=== PATIENT | male | born 1985 | race African-American/Black ===

== ENCOUNTER 2016-10-21 19:41 | Emergency (ER) | payer SELFPAY ==
[~2016-10-21 19:41] MED LIST: DILA100C PO; LACO50 PO; PHEN100 PO
[2016-10-21 19:44] VITALS: BP 153/80; PULSE 89; RESP 18; TEMP 97.8; O2SAT 96
--- NOTE | 2016-10-21 20:16 | PD ---
HPI Chief Complaint: Seizure Time Seen by Provider: 20:00 Travel History International Travel<30 days: No Contact w/Intl Traveler<30days: No Traveled to known affect area: No History of Present Illness HPI 31-year-old male was brought in by EMS for seizure. Patient has history of seizure. Patient was at a friend's house and started having seizure. EMS was called. Patient was postictal on the way to the ED. Upon arrival patient woke up and walked to the room by himself. Patient denies any injury during the seizure episode. Patient denies any headache. Patient denies any neck pain. Patient denies any chest pain or short of breath. Patient denies abdominal pain. Patient denies any focal weakness or numbness of extremity. Patient denies any alcohol or drug abuse. Patient states that he has been taking Dilantin and Vimpat as directed. Last medication was this morning. PFSH Past Medical History Hx Anticoagulant Therapy: No Arthritis: No Asthma: No Autoimmune Disease: No Blood Disorders: No Anxiety: No Depression: No Heart Rhythm Problems: No Cancer: No Cardiovascular Problems: No High Cholesterol: No Chemotherapy: No Chest Pain: No Congestive Heart Failure: No COPD: No Cerebrovascular Accident: No Diabetes: No Diminished Hearing: No Endocrine: No GERD: No Genitourinary: No Headaches: Yes Hiatal Hernia: No Immune Disorder: No Kidney Stones: No Musculoskeletal: No Neurologic: Yes Psychiatric: No Reproductive: No Respiratory: No Immunizations Current: No Migraines: No Radiation Therapy: No Renal Failure: No Seizures: Yes Sickle Cell Disease: No Sleep Apnea: No Thyroid Disease: No Ulcer: No PNEUMOCCOCAL Vaccine (Year): 3 Past Surgical History Abdominal Surgery: No AICD: No Arteriovenous Shunt: No Cardiac Surgery: No Ear Surgery: No Endocrine Surgery: No Eye Surgery: No Genitourinary Surgery: No Gynecologic Surgery: No Hysterectomy: No Insulin Pump: No Joint Replacement: No Neurologic Surgery: Yes (BENIGN BRAIN TUMOR REMOVAL ) Oral Surgery: No Pacemaker: No Thoracic Surgery: No Other Surgery: Yes (R HAND) Social History Alcohol Use: Yes (OCC) Tobacco Use: No Substance Use: Yes (MARIJUANA) Allergies-Medications (Allergen,Severity, Reaction): Coded Allergies: No Known Allergies (Verified , 10/21/16) Reported Meds & Prescriptions Reported Meds & Active Scripts Active Dilantin (Phenytoin Extended) 100 Mg Cap 100 Mg PO TID Review of Systems General / Constitutional: No: Fever Eyes: No: Visual changes HENT: No: Headaches Cardiovascular: No: Chest Pain or Discomfort Respiratory: No: Shortness of Breath Gastrointestinal: No: Abdominal Pain Genitourinary: No: Dysuria Musculoskeletal: No: Pain Skin: No Rash Neurologic: No: Weakness Psychiatric: No: Depression Endocrine: No: Polydipsia Hematologic/Lymphatic: No: Easy Bruising Physical Exam Narrative GENERAL: Well-nourished, well-developed patient. SKIN: Warm and dry. HEAD: Normocephalic. EYES: No scleral icterus. No injection or drainage. NECK: Supple, trachea midline. No JVD or lymphadenopathy. CARDIOVASCULAR: Regular rate and rhythm without murmurs, gallops, or rubs. RESPIRATORY: Breath sounds equal bilaterally. No accessory muscle use. GASTROINTESTINAL: Abdomen soft, non-tender, nondistended. MUSCULOSKELETAL: No cyanosis, or edema. BACK: Nontender without obvious deformity. No CVA tenderness. Neurologic exam normal. Data Data Last Documented VS Vital Signs Date Time Temp Pulse Resp B/P Pulse Ox O2 Delivery O2 Flow Rate FiO2 10/21/16 20:27 18 97 10/21/16 19:46 89 10/21/16 19:44 97.8 153/80 Orders Complete Blood Count With Diff (10/21/16 20:13) Comprehensive Metabolic Panel (10/21/16 20:13) Phenytoin (Dilantin) (10/21/16 20:13) Iv Access Insert/Monitor (10/21/16 20:13) Ecg Monitoring (10/21/16 20:13) Oximetry (10/21/16 20:13) Lorazepam (Ativan) (10/21/16 21:45) Phenytoin (Dilantin) (10/21/16 21:45) Labs Laboratory Tests Test 10/21/16 20:25 White Blood Count 10.8 TH/MM3 Red Blood Count 4.69 MIL/MM3 Hemoglobin 15.0 GM/DL Hematocrit 45.7 % Mean Corpuscular Volume 97.4 FL Mean Corpuscular Hemoglobin 32.1 PG Mean Corpuscular Hemoglobin 32.9 % Concent Red Cell Distribution Width 14.8 % Platelet Count 235 TH/MM3 Mean Platelet Volume 9.2 FL Neutrophils (%) (Auto) 39.5 % Lymphocytes (%) (Auto) 52.8 % Monocytes (%) (Auto) 6.6 % Eosinophils (%) (Auto) 0.9 % Basophils (%) (Auto) 0.2 % Neutrophils # (Auto) 4.3 TH/MM3 Lymphocytes # (Auto) 5.7 TH/MM3 Monocytes # (Auto) 0.7 TH/MM3 Eosinophils # (Auto) 0.1 TH/MM3 Basophils # (Auto) 0.0 TH/MM3 CBC Comment AUTO DIFF Differential Total Cells 100 Counted Neutrophils % (Manual) 38 % Lymphocytes % 53 % Monocytes % 6 % Eosinophils % 3 % Neutrophils # (Manual) 4.1 TH/MM3 Differential Comment FINAL DIFF MANUAL Platelet Estimate NORMAL Platelet Morphology Comment NORMAL Red Cell Morphology Comment NORMAL Sodium Level 141 MEQ/L Potassium Level 4.0 MEQ/L Chloride Level 103 MEQ/L Carbon Dioxide Level 14.3 MEQ/L Anion Gap 24 MEQ/L Blood Urea Nitrogen 14 MG/DL Creatinine 1.81 MG/DL Estimat Glomerular Filtration 53 ML/MIN Rate Random Glucose 78 MG/DL Calcium Level 8.8 MG/DL Total Bilirubin LESS THAN 0.1 MG/DL Aspartate Amino Transf 25 U/L (AST/SGOT) Alanine Aminotransferase 35 U/L (ALT/SGPT) Alkaline Phosphatase 98 U/L Total Protein 7.9 GM/DL Albumin 4.1 GM/DL Phenytoin (Dilantin) Level 3.5 MCG/ML MDM Medical Decision Making Medical Screen Exam Complete: Yes Emergency Medical Condition: Yes Interpretation(s) 21:35 PM. CBC within normal limit. 52 lymphocytes. Bicarbonate 14.3. Anion gap 24. Creatinine 1.81. Phenytoin 3.5 Differential Diagnosis Differential diagnosis including breakthrough seizure, electrolyte abnormality. Narrative Course 31-year-old male was brought in by EMS for seizure. History of seizure. Patient on Dilantin and Vimpat. Dilantin level is low today. Dilantin 200 mg by mouth given. Ativan 1 mg by mouth given. Diagnosis Primary Impression: Breakthrough seizure Patient Instructions: General Instructions Additional Instructions: Advised patient to follow with his neurologist for instruction to take medications. Follow-up with personal physician for Dilantin level checked. Return as needed. Patient may need to increase Dilantin to 300 mg daily. Med/Other Pt SpecificInfo: No Change to Meds Disposition: 01 DISCHARGE HOME Condition: Stable Allen,Hung MD Oct 21, 2016 20:16
[2016-10-21 20:27] VITALS: RESP 18; O2SAT 97
[2016-10-21 20:33] LABS: AUTOMATED NEUTROPHIL # 4.3 TH/MM3 (1.8-7.7); BASOPHIL % 0.2 % (0.0-2.0); EOSINOPHIL # 0.1 TH/MM3 (0-0.4); EOSINOPHIL % 0.9 % (0.0-4.0); HEMATOCRIT 45.7 % (39.0-51.0); LYMPH % 52.8 % (9.0-44.0); LYMPHOCYTE # 5.7 TH/MM3 (1.0-4.8); MEAN CELL VOLUME 97.4 FL (80.0-100.0); MEAN CORPUSCULAR HEMOGLOBIN 32.1 PG (27.0-34.0); MEAN CORPUSCULAR HGB CONC 32.9 % (32.0-36.0); MONO % 6.6 % (0.0-8.0); NEUT % 39.5 % (16.0-70.0); PLATELET COUNT 235 TH/MM3 (150-450); RED BLOOD COUNT 4.69 MIL/MM3 (4.50-5.90); RED CELL DISTRIBUTION WIDTH 14.8 % (11.6-17.2); WHITE BLOOD COUNT 10.8 TH/MM3 (4.0-11.0)
[2016-10-21 20:40] LABS: HEMO FLAGS AUTO DIFF
[2016-10-21 21:01] LABS: ANION GAP 24 MEQ/L (5-15); AST (GOT) 25 U/L (15-37); BICARBONATE 14.3 MEQ/L (21.0-32.0); BLOOD UREA NITROGEN 14 MG/DL (7-18); CHLORIDE 103 MEQ/L (98-107); GLOMERULAR FILTRATION RATE 53 ML/MIN (>89); SODIUM (NA) 141 MEQ/L (136-145)
[2016-10-21 21:04] LABS: EOSINOPHILS 3 % (0-4); NEUTROPHIL # MANUAL DIFF 4.1 TH/MM3 (1.8-7.7); PLATELET ESTIMATE SMEAR NORMAL (NORMAL); PLATELET MORPHOLOGY NORMAL (NORMAL); POLYS (SEG NEUTROPHILS) 38 % (16-70); SCAN/DIFF FINAL DIFF MANUAL; WBC DIFF SAMPLE 100
[2016-10-21 21:06] LABS: ALKALINE PHOSPHATASE 98 U/L (45-117); ALT (GPT) 35 U/L (12-78); TOTAL BILIRUBIN ADULT LESS THAN 0.1 MG/DL (0.2-1.0)
[2016-10-21] MEDS ORDERED: PHENYTOIN SODIUM 100 MG CAP PO ONE (21:45)
[2016-10-21] MEDS ORDERED: LORazepam 1 MG TAB PO ONE (21:45)
== END 2016-10-21 22:00 | disposition home or self-care (01) ==
LOC: NEPC 19:41
DX: R56.9 Unspecified convulsions (principal); F12.90 Cannabis use, unspecified, uncomplicated
CPT/HCPCS: 80053; 80185; 85007; 85027; 99284

== ENCOUNTER 2016-11-29 13:50 | Emergency (ER) | payer SELFPAY ==
[~2016-11-29] VITALS: Ht 182.9 cm; Wt 88.6 kg
[~2016-11-29 13:50] MED LIST changes: -LACO50 PO; -PHEN100 PO
[2016-11-29 13:56] VITALS: BP 125/73; PULSE 77; RESP 16; TEMP 98.6; O2SAT 100
[2016-11-29] MEDS ORDERED: LORazepam 2 MG/ML VIAL IV PUSH PRN (14:30)
--- NOTE | 2016-11-29 14:31 | PD ---
HPI . Seizure Chief Complaint: Seizure Time Seen by Provider: 14:27 Travel History International Travel<30 days: No Contact w/Intl Traveler<30days: No Traveled to known affect area: No History of Present Illness HPI Patient presents to us via [facility] status post an apparent seizure. The patient remembers nothing of this. He states that he has seizures about once a month. He reports that he is with his Dilantin. He denies any injury associated with the seizure today. PFSH Past Medical History Hx Anticoagulant Therapy: No Arthritis: No Asthma: No Autoimmune Disease: No Blood Disorders: No Anxiety: No Depression: No Heart Rhythm Problems: No Cancer: No Cardiovascular Problems: No High Cholesterol: No Chemotherapy: No Chest Pain: No Congestive Heart Failure: No COPD: No Cerebrovascular Accident: No Diabetes: No Diminished Hearing: No Endocrine: No GERD: No Genitourinary: No Headaches: Yes Hiatal Hernia: No Immune Disorder: No Kidney Stones: No Musculoskeletal: No Neurologic: Yes Psychiatric: No Reproductive: No Respiratory: No Immunizations Current: No Migraines: No Radiation Therapy: No Renal Failure: No Seizures: Yes Sickle Cell Disease: No Sleep Apnea: No Thyroid Disease: No Ulcer: No PNEUMOCCOCAL Vaccine (Year): 3 Past Surgical History Abdominal Surgery: No AICD: No Arteriovenous Shunt: No Cardiac Surgery: No Ear Surgery: No Endocrine Surgery: No Eye Surgery: No Genitourinary Surgery: No Gynecologic Surgery: No Hysterectomy: No Insulin Pump: No Joint Replacement: No Neurologic Surgery: Yes (BENIGN BRAIN TUMOR REMOVAL ) Oral Surgery: No Pacemaker: No Thoracic Surgery: No Other Surgery: Yes (R HAND) Social History Alcohol Use: Yes (OCC) Tobacco Use: No Substance Use: Yes (MARIJUANA) Allergies-Medications (Allergen,Severity, Reaction): Coded Allergies: No Known Allergies (Verified , 10/21/16) Reported Meds & Prescriptions Reported Meds & Active Scripts Active Dilantin (Phenytoin Extended) 100 Mg Cap 100 Mg PO TID Review of Systems Except as stated in HPI: all other systems reviewed are Neg HENT: No: Headaches Musculoskeletal: No: Myalgias, Arthralgias Neurologic: Positive: Seizures, No: Headache, Incontinence Physical Exam Narrative GENERAL: Healthy-appearing young man who is currently awake and alert and in no acute distress. SKIN: Warm and dry. He has a superficial abrasion on the left side of the forehead and then another superficial injury in the left side of the scalp. HEAD: Atraumatic. Normocephalic. No scalp contusion. EYES: Pupils equal and round. Extraocular movements are intact. ENT: No nasal bleeding or discharge. Mucous membranes pink and moist. NECK: Trachea midline. Neck is supple. CARDIOVASCULAR: Regular rate and rhythm. Heart sounds are normal. RESPIRATORY: No accessory muscle use. Lungs are clear with full air movement throughout. GASTROINTESTINAL: Abdomen soft, non-tender, nondistended. MUSCULOSKELETAL: No obvious deformities. No edema. NEUROLOGICAL: Awake and alert. No obvious cranial nerve deficits. Motor grossly within normal limits. Normal speech. PSYCHIATRIC: Appropriate mood and affect; insight and judgment normal. Data Data Last Documented VS Vital Signs Date Time Temp Pulse Resp B/P Pulse Ox O2 Delivery O2 Flow Rate FiO2 11/29/16 13:59 73 100 Room Air 11/29/16 13:56 98.6 16 125/73 Orders Phenytoin (Dilantin) (11/29/16 14:27) Lorazepam Inj (Ativan Inj) (11/29/16 14:30) Labs Laboratory Tests Test 11/29/16 14:00 Phenytoin (Dilantin) Level 5.6 MCG/ML MDM Medical Decision Making Medical Screen Exam Complete: Yes Emergency Medical Condition: Yes Differential Diagnosis Differential diagnosis of seizure includes but is not limited to epilepsy, electrolyte abnormality, previous stroke, closed head injury Narrative Course Patient presents with a known seizure disorder. He is status post a seizure. He is now awake and alert. We will give him Ativan as needed for seizure activity. I have checked a Dilantin level. Dilantin level is subtherapeutic. He will be given a dose of fosphenytoin. Diagnosis Primary Impression: Breakthrough seizure Additional Impression: Subtherapeutic serum dilantin level Patient Instructions: General Instructions, Recurrent Seizures in Adults (DC) Additional Instructions: Take your Dilantin as directed. See your doctor for a follow-up Dilantin level in about a week. Disposition: 01 DISCHARGE HOME Condition: Stable Libia Morejon MD Nov 29, 2016 14:31
[2016-11-29] MEDS ORDERED: SODIUM CHLORIDE 0.9% IV ONE (15:45)
[2016-11-29] MEDS ORDERED: PHENYTOIN IV ONE (15:45)
[2016-11-29] MEDS ORDERED: FOSPHENYTOIN SODIUM 500 MG PE/10 ML VIAL IV ONE (15:45)
[2016-11-29 17:40] VITALS: BP 141/63
== END 2016-11-29 17:44 | disposition home or self-care (01) ==
LOC: NEPA 13:50
DX: R56.9 Unspecified convulsions (principal); T50.996A Underdosing of other drugs, medicaments and biological substances, initial encounter; Z91.138 Patient's unintentional underdosing of medication regimen for other reason
CPT/HCPCS: 80185; 96374; 99284; Q2009

== ENCOUNTER 2016-12-31 10:50 | Emergency (ER) | payer SELFPAY ==
[~2016-12-31] VITALS: Ht 180.3 cm; Wt 80.0 kg
[2016-12-31 10:52] VITALS: BP 148/68; PULSE 100; RESP 22; TEMP 98.4; O2SAT 100
[2016-12-31] MEDS ORDERED: PROPARACAINE HCL 0.5% OPHT SOLN 15 ML BTL EACH EYE ONE (11:00)
[2016-12-31] MEDS ORDERED: OCUF0.3D LEFT EYE (11:13)
[2016-12-31] MEDS ORDERED: LUBR0.5D2 LEFT EYE ×3 (11:13→11:19)
--- NOTE | 2016-12-31 11:14 | PD ---
HPI Chief Complaint: Foreign Body Time Seen by Provider: 10:57 Travel History International Travel<30 days: No Contact w/Intl Traveler<30days: No Traveled to known affect area: No History of Present Illness HPI 31-year-old male here with complaint of foreign body to the left eye. Patient accidentally used superglue into the left eye just prior to arrival and said of eyedrops. Patient notes foreign body sensation and changed visual acuity of the left eye. No history of eye disease, visual dysfunction. Patient really notes little pain. PFSH Past Medical History Hx Anticoagulant Therapy: No Arthritis: No Asthma: No Autoimmune Disease: No Blood Disorders: No Anxiety: No Depression: No Heart Rhythm Problems: No Cancer: No Cardiovascular Problems: No High Cholesterol: No Chemotherapy: No Chest Pain: No Congestive Heart Failure: No COPD: No Cerebrovascular Accident: No Diabetes: No Diminished Hearing: No Endocrine: No GERD: No Genitourinary: No Headaches: Yes Hiatal Hernia: No Immune Disorder: No Kidney Stones: No Musculoskeletal: No Neurologic: Yes Psychiatric: No Reproductive: No Respiratory: No Immunizations Current: No Migraines: No Radiation Therapy: No Renal Failure: No Seizures: Yes Sickle Cell Disease: No Sleep Apnea: No Thyroid Disease: No Ulcer: No PNEUMOCCOCAL Vaccine (Year): 3 Past Surgical History Abdominal Surgery: No AICD: No Arteriovenous Shunt: No Cardiac Surgery: No Ear Surgery: No Endocrine Surgery: No Eye Surgery: No Genitourinary Surgery: No Gynecologic Surgery: No Hysterectomy: No Insulin Pump: No Joint Replacement: No Neurologic Surgery: Yes (BENIGN BRAIN TUMOR REMOVAL ) Oral Surgery: No Pacemaker: No Thoracic Surgery: No Other Surgery: Yes (R HAND) Social History Alcohol Use: Yes (OCC) Tobacco Use: No Substance Use: Yes (MARIJUANA) Allergies-Medications (Allergen,Severity, Reaction): Coded Allergies: No Known Allergies (Verified , 12/31/16) Reported Meds & Prescriptions Reported Meds & Active Scripts Active Lubricant Opth Drops (Carboxymethylcellulose Sodium Opth Drops) 0.5% Drops 2 Drop LEFT EYE QID Ocuflox Opth Drops (Ofloxacin Opth Drops) 0.3 % Drops 1 Drop LEFT EYE Q4HR Dilantin (Phenytoin Extended) 100 Mg Cap 100 Mg PO TID Review of Systems Except as stated in HPI: all other systems reviewed are Neg Physical Exam Narrative GENERAL: Well-appearing male in no acute distress SKIN: Focused skin assessment warm/dry. HEAD: Normocephalic. EYES: Pupils equal and round. Left eye with conjunctival injection. Evidence of glue along the eyelashes, left lateral aspect of the eye. After proparacaine , visual acuity 20/20 bilaterally. With slit lamp examination and floor seen staining patient has glue within the inferior lid that was removed with Q-tip on exam. There is a area along the cornea uptake of the glue at around 4:00 ENT: Mucous membranes pink and moist. CARDIOVASCULAR: Regular rate and rhythm. RESPIRATORY: No accessory muscle use. MUSCULOSKELETAL: Normal gait NEUROLOGICAL: Awake and alert. Normal speech. PSYCHIATRIC: Appropriate mood and affect; insight and judgment normal. Data Data Last Documented VS Vital Signs Date Time Temp Pulse Resp B/P Pulse Ox O2 Delivery O2 Flow Rate FiO2 12/31/16 11:00 16 12/31/16 10:52 98.4 100 148/68 100 Room Air Orders Proparacaine 0.5% Opth Soln (Alcaine 0.5 (12/31/16 11:00) MDM Medical Decision Making Medical Screen Exam Complete: Yes Emergency Medical Condition: Yes Medical Record Reviewed: Yes Differential Diagnosis 31-year-old male here with foreign body to left eye. On exam patient has evidence of glue along the eyelashes and within the eyelid which was removed easily. There is however persistent glue along the cornea. Removing this would likely cause more damage, large corneal abrasion. Patient will be treated with antibiotic drops to prevent any infection, lubricating drops and will refer to ophthalmology with mandatory referral for outpatient follow-up Narrative Course See above Diagnosis Primary Impression: Foreign body, intraocular, left eye Qualified Code: S05.52XA - Foreign body, intraocular, left eye, initial encounter Referrals: Karina Galdamez MDmetal furniture panel coverer call for appointment Patient Instructions: Eye Foreign Body (ED), General Instructions Additional Instructions: Eyedrops as prescribed. Follow-up with lunchroom operator as discussed. Med/Other Pt SpecificInfo: Prescription(s) given Scripts Carboxymethylcellulose Sodium Opth Drops (Lubricant Opth Drops)0.5% Drops2 Drop LEFT EYE QID #1 BOTTLE Ref 0 Prov:Hazel Levi MD 12/31/16 Ofloxacin Opth Drops (Ocuflox Opth Drops)0.3 % Drops1 Drop LEFT EYE Q4HR #1 BOTTLE Ref 0 Prov:Hazel Levi MD 12/31/16 Disposition: 01 DISCHARGE HOME Condition: Stable Hazel Levi MD Dec 31, 2016 11:13
== END 2016-12-31 11:39 | disposition home or self-care (01) ==
LOC: NEPD 10:50
DX: T15.02XA Foreign body in cornea, left eye, initial encounter (principal); X58.XXXA Exposure to other specified factors, initial encounter; Y93.E8 Activity, other personal hygiene; Y92.009 Unspecified place in unspecified non-institutional (private) residence as the place of occurrence of the external cause; Y99.8 Other external cause status
CPT/HCPCS: 65205

== ENCOUNTER 2017-01-18 15:06 | Emergency (ER) | payer SELFPAY ==
[~2017-01-18] VITALS: Ht 182.9 cm; Wt 87.0 kg
[~2017-01-18 15:06] MED LIST changes: +LUBR0.5D2 LEFT EYE; +OCUF0.3D LEFT EYE
[2017-01-18 15:27] VITALS: BP 106/58; PULSE 77; RESP 16; TEMP 97.8; O2SAT 99
[2017-01-18] MEDS ORDERED: LORazepam 2 MG/ML VIAL IV PUSH ONE (16:45)
[2017-01-18 17:27] LABS: BICARBONATE 27.5 MEQ/L (21.0-32.0); POTASSIUM 4.1 MEQ/L (3.5-5.1)
[2017-01-18 17:30] VITALS: BP 110/77; PULSE 72; RESP 16; TEMP 97.8; O2SAT 99
--- NOTE | 2017-01-18 17:44 | PD ---
HPI Chief Complaint: Seizure Time Seen by Provider: 16:01 Travel History International Travel<30 days: No Contact w/Intl Traveler<30days: No Traveled to known affect area: No History of Present Illness HPI 31-year-old man presents emergency department after witnessed seizure. He reports the seizure lasted about 1 minute or so. 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 He states on average she gets seizures about once a month or so. His last seizure was about 3 weeks ago. He takes Dilantin for seizures. He states he's been taking it regularly. No problems. He otherwise has been feeling generally well and healthy. No recent illnesses or injuries. He states he felt a little bit extra tired today but nothing out of the ordinary. History Past Medical History Narrative Medical Seizures History of brain surgery Tetanus Vaccination: < 5 Years Influenza Vaccination: Yes PNEUMOCCOCAL Vaccine (Year): 3 Social History Alcohol Use: Yes (OCC) Tobacco Use: Yes (5 CIGARRETTES) Allergies-Medications (Allergen,Severity, Reaction): Coded Allergies: No Known Allergies (Verified , 01/18/17) Reported Meds & Prescriptions Reported Meds & Active Scripts Active Dilantin (Phenytoin Extended) 100 Mg Cap 100 Mg PO TID Review of Systems Except as stated in HPI: all other systems reviewed are Neg Physical Exam Narrative GENERAL: Well-appearing 31-year-old man, no acute distress. SKIN: Focused skin assessment warm/dry. HEAD: Atraumatic. Normocephalic. EYES: Pupils equal and round. No scleral icterus. No injection or drainage. ENT: No nasal bleeding or discharge. Mucous membranes pink and moist. NECK: Trachea midline. No JVD. CARDIOVASCULAR: Regular rate and rhythm. No murmur appreciated. RESPIRATORY: No accessory muscle use. Clear to auscultation. Breath sounds equal bilaterally. GASTROINTESTINAL: Abdomen soft, non-tender, nondistended. Hepatic and splenic margins not palpable. MUSCULOSKELETAL: No obvious deformities. No clubbing. No cyanosis. No edema. NEUROLOGICAL: Awake and alert. No obvious cranial nerve deficits. Motor grossly within normal limits. Normal speech. PSYCHIATRIC: Appropriate mood and affect; insight and judgment normal. Data Data Last Documented VS Vital Signs Date Time Temp Pulse Resp B/P Pulse Ox O2 Delivery O2 Flow Rate FiO2 01/18/17 17:30 97.8 72 16 110/77 99 Room Air Orders Basic Metabolic Panel (Bmp) (01/18/17 16:02) Phenytoin (Dilantin) (01/18/17 16:40) Lorazepam Inj (Ativan Inj) (01/18/17 16:45) Labs Laboratory Tests Test 01/18/17 16:20 Sodium Level 140 MEQ/L Potassium Level 4.1 MEQ/L Chloride Level 104 MEQ/L Carbon Dioxide Level 27.5 MEQ/L Anion Gap 9 MEQ/L Blood Urea Nitrogen 17 MG/DL Creatinine 1.95 MG/DL Estimat Glomerular Filtration 49 ML/MIN Rate Random Glucose 55 MG/DL Calcium Level 9.2 MG/DL Phenytoin (Dilantin) Level 4.8 MCG/ML MDM Medical Decision Making Medical Screen Exam Complete: Yes Emergency Medical Condition: Yes Interpretation(s) CMP, elevated creatinine Dilantin subtherapeutic Differential Diagnosis Seizure, electrolyte abnormality, subtherapeutic Dilantin, other Narrative Course Medical decision making This a 31-year-old man who presents to the emergency department after witnessed seizure. Looks well. We'll check electrolytes, some Dilantin level, we will give additional Dilantin if needed. Outpatient follow-up. Diagnosis Primary Impression: Breakthrough seizure Additional Impression: Subtherapeutic serum dilantin level Additional Instructions: Continue Dilantin. Follow-up with her primary doctor for further evaluation of your abnormal kidney labs. Do not drive or operate heavy machinery until cleared by neurology. You should avoid being in any situation where if you had a seizure it could be dangerous such as swimming, looking on a ladder, or other such activities. Return to the emergency department for any seizures lasting more than 5 minutes , [id number] seizures, or seizures with prolonged confusion afterwards. Med/Other Pt SpecificInfo: No Change to Meds Disposition: 01 DISCHARGE HOME Condition: Stable Benjy Sainz MD Jan 18, 2017 17:44
[2017-01-18] MEDS ORDERED: FOSPHENYTOIN INJ 1,000 MGPE in SODIUM CHLORIDE 0.9% INJ 50 ML IV ONE (18:45)
== END 2017-01-18 20:19 | disposition home or self-care (01) ==
LOC: NEPE 15:06
DX: R56.9 Unspecified convulsions (principal)
CPT/HCPCS: 80048; 80185; 96374; 96375; 99284; J2060; Q2009

== ENCOUNTER 2017-01-26 21:44 | Emergency (ER) | payer SELFPAY ==
[~2017-01-26] VITALS: Ht 185.4 cm; Wt 102.0 kg
[~2017-01-26 21:44] MED LIST changes: -LUBR0.5D2 LEFT EYE; -OCUF0.3D LEFT EYE
[2017-01-26 21:50] VITALS: BP 127/69; PULSE 66; RESP 16; TEMP 98.3; O2SAT 98
[2017-01-26 23:04] LABS: POTASSIUM 3.8 MEQ/L (3.5-5.1)
[2017-01-26] MEDS ORDERED: FOSPHENYTOIN SODIUM 500 MG PE/10 ML VIAL IV ONE (23:15)
[2017-01-26] MEDS ORDERED: FOSPHENYTOIN INJ 500 MGPE in SODIUM CHLORIDE 0.9% INJ 50 ML IV ONE (23:30)
--- NOTE | 2017-01-27 00:07 | PD ---
HPI Chief Complaint: Seizure Time Seen by Provider: 21:51 Travel History International Travel<30 days: No Contact w/Intl Traveler<30days: No Traveled to known affect area: No History of Present Illness HPI 31-year-old man presents emergency department after witnessed seizure. He reports the seizure lasted about 1 minute or so. 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 He states on average she gets seizures about once a month or so. His last seizure was about a week ago when I saw him. He takes Dilantin for seizures. He states he's been taking it regularly. They recently increased to 300 twice a day. No problems. He otherwise has been feeling generally well and healthy. No recent illnesses or injuries. He states he felt a little bit extra tired today but nothing out of the ordinary. History Past Medical History Narrative Medical Seizures History of brain surgery Tetanus Vaccination: > 5 Years Influenza Vaccination: No PNEUMOCCOCAL Vaccine (Year): 3 Past Surgical History Surgical History: No Previous Surgery Social History Alcohol Use: Yes (on occasion) Tobacco Use: No Allergies-Medications (Allergen,Severity, Reaction): Coded Allergies: No Known Allergies (Verified , 01/18/17) Reported Meds & Prescriptions Reported Meds & Active Scripts Active Dilantin (Phenytoin Extended) 100 Mg Cap 100 Mg PO TID Review of Systems Except as stated in HPI: all other systems reviewed are Neg Physical Exam Narrative GENERAL: Well-appearing 31-year-old man, still little bit postictal the coming out of it rapidly. No acute distress. SKIN: Focused skin assessment warm/dry. HEAD: Normocephalic. He is a little bit of a contusion on his right forehead. EYES: Pupils equal and round. No scleral icterus. No injection or drainage. ENT: No nasal bleeding or discharge. Mucous membranes pink and moist. NECK: Trachea midline. No JVD. CARDIOVASCULAR: Regular rate and rhythm. No murmur appreciated. RESPIRATORY: No accessory muscle use. Clear to auscultation. Breath sounds equal bilaterally. GASTROINTESTINAL: Abdomen soft, non-tender, nondistended. Hepatic and splenic margins not palpable. MUSCULOSKELETAL: No obvious deformities. No edema. NEUROLOGICAL: Awake and alert. No obvious cranial nerve deficits. Motor grossly within normal limits. Normal speech. PSYCHIATRIC: Appropriate mood and affect; insight and judgment normal. Data Data Last Documented VS Vital Signs Date Time Temp Pulse Resp B/P Pulse Ox O2 Delivery O2 Flow Rate FiO2 01/26/17 21:50 98.3 66 16 127/69 98 Room Air Orders Basic Metabolic Panel (Bmp) (01/26/17 21:51) Phenytoin (Dilantin) (01/26/17 21:51) Fosphenytoin Inj (Cerebyx Inj) (01/26/17 23:30) Labs Laboratory Tests Test 01/26/17 22:25 Sodium Level 141 MEQ/L Potassium Level 3.8 MEQ/L Chloride Level 105 MEQ/L Carbon Dioxide Level 27.0 MEQ/L Anion Gap 9 MEQ/L Blood Urea Nitrogen 16 MG/DL Creatinine 1.84 MG/DL Estimat Glomerular Filtration 52 ML/MIN Rate Random Glucose 102 MG/DL Calcium Level 9.3 MG/DL Phenytoin (Dilantin) Level 7.9 MCG/ML MDM Medical Decision Making Medical Screen Exam Complete: Yes Emergency Medical Condition: Yes Interpretation(s) LABS: BMP remarkable for mildly elevated creatinine, consistent with previous. Phenytoin is 7.9. Differential Diagnosis Break through seizures, subtherapeutic phenytoin level, mass, other Narrative Course Medical decision making 31-year-old male with seizures, here witnessed seizure. His a contusion of forehead. EMS reports bystanders were lowered him to the ground. He complains of no headache or other symptoms now. I don't think he has any head injury. They recently adjusted his phenytoin dosing. Recommend outpatient follow-up. Diagnosis Primary Impression: Breakthrough seizure Additional Impression: Subtherapeutic serum dilantin level Additional Instructions: Continue phenytoin as prescribed. Follow-up with her primary doctor for repeat evaluation. Do not drive or operate heavy machinery until cleared by neurology. You should avoid being in any situation where if you had a seizure it could be dangerous such as swimming, looking on a ladder, or other such activities. Return to the emergency department for any seizures lasting more than 5 minutes , [id number] seizures, or seizures with prolonged confusion afterwards. Disposition: 01 DISCHARGE HOME Condition: Stable Benjy Sainz MD January 27, 2017 00:07
[2017-01-27 01:02] VITALS: BP 140/67
== END 2017-01-27 01:05 | disposition home or self-care (01) ==
LOC: NEPC 21:44
DX: R56.9 Unspecified convulsions (principal)
CPT/HCPCS: 80048; 80185; 99284; Q2009

== ENCOUNTER 2017-07-25 16:31 | Emergency (ER) | payer SELFPAY ==
[~2017-07-25] VITALS: Ht 180.3 cm; Wt 91.0 kg
[2017-07-25 16:45] VITALS: BP 124/60; PULSE 82; RESP 15; TEMP 98.6; O2SAT 95
[2017-07-25 16:47] VITALS: BP 124/60; PULSE 76; RESP 18; TEMP 98.6; O2SAT 96
--- NOTE | 2017-07-25 16:54 | PD ---
HPI Chief Complaint: Seizure Time Seen by Provider: 16:44 Travel History International Travel<30 days: No Contact w/Intl Traveler<30days: No Traveled to known affect area: No History of Present Illness HPI 32-year-old male was brought in by EMS for seizure. Patient has history of seizure. Patient states that he is taking Dilantin 300 mg twice a day. Patient states that he has been seen by personal physician and neurologist. Patient states that he had Dilantin level done recently and it was good. Patient states that he has frequent breakthrough seizures despite taking Dilantin. Patient was playing basketball today and had a breakthrough seizure. Patient states that he did not injure himself during the seizure episode. Patient denies any headache. Patient denies any neck pain. Patient denies any chest pain or shortness of breath. Patient denies abdominal pain. Patient denies any focal weakness or numbness of extremity. Patient denies any alcohol or drug abuse. PFSH Past Medical History Hx Anticoagulant Therapy: No Arthritis: No Asthma: No Autoimmune Disease: No Blood Disorders: No Anxiety: No Depression: No Heart Rhythm Problems: No Cancer: No Cardiovascular Problems: No High Cholesterol: No Chemotherapy: No Chest Pain: No Congestive Heart Failure: No COPD: No Cerebrovascular Accident: No Diabetes: No Diminished Hearing: No Endocrine: No GERD: No Genitourinary: No Headaches: Yes Hiatal Hernia: No Immune Disorder: No Kidney Stones: No Musculoskeletal: No Neurologic: Yes Psychiatric: No Reproductive: No Respiratory: No Immunizations Current: No Migraines: No Radiation Therapy: No Renal Failure: No Seizures: Yes (onset in childhood) Sickle Cell Disease: No Sleep Apnea: No Thyroid Disease: No Ulcer: No PNEUMOCCOCAL Vaccine (Year): 3 Past Surgical History Abdominal Surgery: No AICD: No Arteriovenous Shunt: No Cardiac Surgery: No Ear Surgery: No Endocrine Surgery: No Eye Surgery: No Genitourinary Surgery: No Gynecologic Surgery: No Hysterectomy: No Insulin Pump: No Joint Replacement: No Neurologic Surgery: Yes (BENIGN BRAIN TUMOR REMOVAL ) Oral Surgery: No Pacemaker: No Thoracic Surgery: No Other Surgery: Yes (R HAND) Social History Alcohol Use: Yes (on occasion) Tobacco Use: No Substance Use: No Allergies-Medications (Allergen,Severity, Reaction): Coded Allergies: No Known Allergies (Verified Allergy, Unknown, 07/25/17) Reported Meds & Prescriptions Reported Meds & Active Scripts Active Dilantin (Phenytoin Extended) 100 Mg Cap 100 Mg PO TID Review of Systems General / Constitutional: No: Fever Eyes: No: Visual changes HENT: No: Headaches Cardiovascular: No: Chest Pain or Discomfort Respiratory: No: Shortness of Breath Gastrointestinal: No: Abdominal Pain Genitourinary: No: Dysuria Musculoskeletal: No: Pain Skin: No Rash Neurologic: Positive: Seizures, No: Weakness Psychiatric: No: Depression Endocrine: No: Polydipsia Hematologic/Lymphatic: No: Easy Bruising Physical Exam Narrative GENERAL: Well-nourished, well-developed patient. SKIN: Focused skin assessment warm/dry. Patient has a small abrasion to left upper lip. HEAD: Normocephalic. EYES: No scleral icterus. No injection or drainage. Pupils 2 mm equal reactive. NECK: Supple, trachea midline. No JVD or lymphadenopathy. CARDIOVASCULAR: Regular rate and rhythm without murmurs, gallops, or rubs. RESPIRATORY: Breath sounds equal bilaterally. No accessory muscle use. GASTROINTESTINAL: Abdomen soft, non-tender, nondistended. MUSCULOSKELETAL: No cyanosis, or edema. BACK: Nontender without obvious deformity. No CVA tenderness. Neurologic exam: Patient's awake and alert oriented 3. No obvious focal neurological deficit. Data Data Last Documented VS Vital Signs Date Time Temp Pulse Resp B/P (MAP) Pulse Ox O2 Delivery O2 Flow Rate FiO2 07/25/17 21:08 07/25/17 19:35 68 16 99 Room Air 07/25/17 16:47 98.6 Orders Orders Complete Blood Count With Diff (07/25/17 16:44) Basic Metabolic Panel (Bmp) (07/25/17 16:44) Phenytoin (Dilantin) (07/25/17 16:44) Iv Access Insert/Monitor (07/25/17 16:44) Ecg Monitoring (07/25/17 16:44) Oximetry (07/25/17 16:44) Phenytoin Inj (Dilantin Inj) (07/25/17 20:00) Ed Discharge Order (07/25/17 20:19) Labs Laboratory Tests Test 07/25/17 18:30 White Blood Count 12.2 TH/MM3 Red Blood Count 4.59 MIL/MM3 Hemoglobin 14.4 GM/DL Hematocrit 43.6 % Mean Corpuscular Volume 95.0 FL Mean Corpuscular Hemoglobin 31.4 PG Mean Corpuscular Hemoglobin Concent 33.0 % Red Cell Distribution Width 14.7 % Platelet Count 201 TH/MM3 Mean Platelet Volume 9.0 FL Neutrophils (%) (Auto) 80.2 % Lymphocytes (%) (Auto) 13.9 % Monocytes (%) (Auto) 5.4 % Eosinophils (%) (Auto) 0.3 % Basophils (%) (Auto) 0.2 % Neutrophils # (Auto) 9.8 TH/MM3 Lymphocytes # (Auto) 1.7 TH/MM3 Monocytes # (Auto) 0.7 TH/MM3 Eosinophils # (Auto) 0.0 TH/MM3 Basophils # (Auto) 0.0 TH/MM3 CBC Comment DIFF FINAL Differential Comment Blood Urea Nitrogen 19 MG/DL Creatinine 1.38 MG/DL Random Glucose 69 MG/DL Calcium Level 8.9 MG/DL Sodium Level 138 MEQ/L Potassium Level 4.3 MEQ/L Chloride Level 105 MEQ/L Carbon Dioxide Level 25.3 MEQ/L Anion Gap 8 MEQ/L Estimat Glomerular Filtration Rate 72 ML/MIN Phenytoin (Dilantin) Level 6.1 MCG/ML [facility] Medical Decision Making Medical Screen Exam Complete: Yes Emergency Medical Condition: Yes Differential Diagnosis Differential diagnosis including breakthrough seizure, electrolyte abnormality. Narrative Course 32-year-old male with breakthrough seizure. History of seizure. On Dilantin. Marty Villa MD Jul 25, 2017 16:54
--- NOTE | 2017-07-25 17:16 | PD ---
Physical Exam Date Seen by Provider: Jul 25, 2017 Data Data Last Documented VS Vital Signs Date Time Temp Pulse Resp B/P (MAP) Pulse Ox O2 Delivery O2 Flow Rate FiO2 07/25/17 19:35 68 16 154/68 (96) 99 Room Air 07/25/17 16:47 98.6 Orders Orders Complete Blood Count With Diff (07/25/17 16:44) Basic Metabolic Panel (Bmp) (07/25/17 16:44) Phenytoin (Dilantin) (07/25/17 16:44) Iv Access Insert/Monitor (07/25/17 16:44) Ecg Monitoring (07/25/17 16:44) Oximetry (07/25/17 16:44) Phenytoin Inj (Dilantin Inj) (07/25/17 20:00) Labs Laboratory Tests Test 07/25/17 18:30 White Blood Count 12.2 TH/MM3 Red Blood Count 4.59 MIL/MM3 Hemoglobin 14.4 GM/DL Hematocrit 43.6 % Mean Corpuscular Volume 95.0 FL Mean Corpuscular Hemoglobin 31.4 PG Mean Corpuscular Hemoglobin Concent 33.0 % Red Cell Distribution Width 14.7 % Platelet Count 201 TH/MM3 Mean Platelet Volume 9.0 FL Neutrophils (%) (Auto) 80.2 % Lymphocytes (%) (Auto) 13.9 % Monocytes (%) (Auto) 5.4 % Eosinophils (%) (Auto) 0.3 % Basophils (%) (Auto) 0.2 % Neutrophils # (Auto) 9.8 TH/MM3 Lymphocytes # (Auto) 1.7 TH/MM3 Monocytes # (Auto) 0.7 TH/MM3 Eosinophils # (Auto) 0.0 TH/MM3 Basophils # (Auto) 0.0 TH/MM3 CBC Comment DIFF FINAL Differential Comment Blood Urea Nitrogen 19 MG/DL Creatinine 1.38 MG/DL Random Glucose 69 MG/DL Calcium Level 8.9 MG/DL Sodium Level 138 MEQ/L Potassium Level 4.3 MEQ/L Chloride Level 105 MEQ/L Carbon Dioxide Level 25.3 MEQ/L Anion Gap 8 MEQ/L Estimat Glomerular Filtration Rate 72 ML/MIN Phenytoin (Dilantin) Level 6.1 MCG/ML MDM Medical Record Reviewed: Yes Supervised Visit with JEM: No Narrative Course Patient signed out to me by Dr. Villa at change of shift. Patient pending lab work, dilantin level and observation. Patient is a 32-year-old male with history of seizures which has been ongoing for the past 8 years after he was diagnosed with a brain tumor, he reports that he has been taking delay in and does see a neurologist in [place]. Reports that he cannot remember the name of his neurologist at this time. He does have appointment with this neurologist upcoming early this month. Patient reports that he had a typical seizure today, reports that he has been compliant with his medications include Dilantin. Patient with no complaints at this time. CBC & BMP Diagram 07/25/17 18:30 Calcium Level 8.9 phenytoin 6.1 - IV bolus of dilantin ordered. Patient well appearing with no seizure episodes in the ER. Patient is alert and oriented x 3 with no complaints. Patient will follow up with his neurologist soon and will return to ER as needed. Diagnosis Primary Impression: Seizure disorder Additional Impression: Renal insufficiency Patient Instructions: General Instructions Departure Forms: Tests/Procedures, Work Release Enter return to work date: Jul 29, 2017 Additional Instruction: Please provide patient with a copy of their lab work and studies at discharge* * Please follow up with your primary care doctor in 2-3 days Return to the ER if symptoms worsen or progress Return to the ER as needed Please follow up with your neurologist as soon as possible Please take all medications as prescribed Disposition: 01 DISCHARGE HOME Condition: Stable Jocelyn Saez DO Jul 25, 2017 17:16
[2017-07-25 19:22] LABS: AUTOMATED NEUTROPHIL # 9.8 TH/MM3 (1.8-7.7); BASOPHIL % 0.2 % (0.0-2.0); EOSINOPHIL % 0.3 % (0.0-4.0); HEMATOCRIT 43.6 % (39.0-51.0); HEMO FLAGS DIFF FINAL; LYMPH % 13.9 % (9.0-44.0); LYMPHOCYTE # 1.7 TH/MM3 (1.0-4.8); MEAN CORPUSCULAR HEMOGLOBIN 31.4 PG (27.0-34.0); MONO % 5.4 % (0.0-8.0); NEUT % 80.2 % (16.0-70.0); PLATELET COUNT 201 TH/MM3 (150-450); RED BLOOD COUNT 4.59 MIL/MM3 (4.50-5.90); RED CELL DISTRIBUTION WIDTH 14.7 % (11.6-17.2); WHITE BLOOD COUNT 12.2 TH/MM3 (4.0-11.0)
[2017-07-25 19:35] VITALS: BP 154/68; PULSE 68; RESP 16; O2SAT 99
[2017-07-25 19:35] LABS: BICARBONATE 25.3 MEQ/L (21.0-32.0); POTASSIUM 4.3 MEQ/L (3.5-5.1)
[2017-07-25] MEDS ORDERED: PHENYTOIN INJ 1,000 MG in SODIUM CHLORIDE 0.9% INJ 100 ML IV ONE (20:00)
== END 2017-07-25 21:10 | disposition home or self-care (01) ==
LOC: NEPD 16:31
DX: G40.909 Epilepsy, unspecified, not intractable, without status epilepticus (principal); N28.9 Disorder of kidney and ureter, unspecified
CPT/HCPCS: 80048; 80185; 85025; 96365; 99284; J1165

== ENCOUNTER 2017-08-21 11:05 | Emergency (ER) | payer SELFPAY ==
[~2017-08-21] VITALS: Ht 180.3 cm; Wt 86.5 kg
[2017-08-21 11:16] VITALS: BP 157/90; PULSE 77; RESP 17; TEMP 98; O2SAT 100
--- NOTE | 2017-08-21 11:31 | PD ---
HPI Chief Complaint: Seizure Time Seen by Provider: 11:27 Travel History International Travel<30 days: No Contact w/Intl Traveler<30days: No Traveled to known affect area: No History of Present Illness HPI 32-year-old male presents to the emergency department via EMS after a witnessed seizure by his brother. He has history of seizures. He takes Dilantin and last took it yesterday. Reports being compliant with his medication. Did not take his medication this morning because he needs to get a refill. He has a neurologist but cannot remember his name. He last saw his neurologist month ago and had his Dilantin level checked which per the patient was normal. His last seizure was also one month ago. He denies falling or hitting his head. He said he was lying down when he had a seizure. He does not know how long it lasted. No known relieving or aggravating factors. Symptoms are mild in severity. He has no medical complaints at this time. Denies chest pain, shortness of breath, abdominal pain, nausea, vomiting. Denies recent illness. Has a primary care provider and doesn't know name. No known allergies. No other modifying factors or associated signs and symptoms. PFSH Past Medical History Hx Anticoagulant Therapy: No Arthritis: No Asthma: No Autoimmune Disease: No Blood Disorders: No Anxiety: No Depression: No Heart Rhythm Problems: No Cancer: No Cardiovascular Problems: No High Cholesterol: No Chemotherapy: No Chest Pain: No Congestive Heart Failure: No COPD: No Cerebrovascular Accident: No Diabetes: No Diminished Hearing: No Endocrine: No GERD: No Genitourinary: No Headaches: Yes Hiatal Hernia: No Immune Disorder: No Kidney Stones: No Musculoskeletal: No Neurologic: Yes Psychiatric: No Reproductive: No Respiratory: No Immunizations Current: No Migraines: No Radiation Therapy: No Renal Failure: No Seizures: Yes Sickle Cell Disease: No Sleep Apnea: No Thyroid Disease: No Ulcer: No PNEUMOCCOCAL Vaccine (Year): 3 Past Surgical History Surgical History: No Previous Surgery Abdominal Surgery: No AICD: No Arteriovenous Shunt: No Cardiac Surgery: No Ear Surgery: No Endocrine Surgery: No Eye Surgery: No Genitourinary Surgery: No Gynecologic Surgery: No Hysterectomy: No Insulin Pump: No Joint Replacement: No Neurologic Surgery: Yes (BENIGN BRAIN TUMOR REMOVAL ) Oral Surgery: No Pacemaker: No Thoracic Surgery: No Other Surgery: Yes (R HAND) Social History Alcohol Use: No Tobacco Use: Yes Substance Use: No Allergies-Medications (Allergen,Severity, Reaction): Coded Allergies: No Known Allergies (Verified Allergy, Unknown, 07/25/17) Reported Meds & Prescriptions Reported Meds & Active Scripts Active Dilantin (Phenytoin Extended) 100 Mg Cap 100 Mg PO TID Review of Systems Except as stated in HPI: all other systems reviewed are Neg Physical Exam Narrative GENERAL: Well-nourished, well-developed black patient, in no acute distress SKIN: Warm and dry. HEAD: Atraumatic. Normocephalic. No facial droop noted. Tongue midline. EYES: Pupils equal and round at 3 mm with brisk reaction. No scleral icterus. No injection or drainage. PERRLA. EOMI. ENT: Mucosa pink and moist. Airway patent. NECK: Trachea midline. No lymphadenopathy. CARDIOVASCULAR: Regular rate and rhythm. No murmur appreciated. RESPIRATORY: No accessory muscle use. Clear to auscultation. Breath sounds equal bilaterally. GASTROINTESTINAL: Abdomen soft, non-tender, nondistended. Hepatic and splenic margins not palpable. Bowel sounds are active 4 quadrants. MUSCULOSKELETAL: No obvious deformities. No clubbing. No cyanosis. No edema. NEUROLOGICAL: Awake and alert. Oriented 4. No obvious cranial nerve deficits. Motor grossly within normal limits. Normal speech. No ataxia. No mid -line drift. No upper or lower extremity drift. Finger to nose test normal. Moves all extremities. 5/5 strength to all extremities. PSYCHIATRIC: Appropriate mood and affect; insight and judgment normal. Data Data Last Documented VS Vital Signs Date Time Temp Pulse Resp B/P (MAP) Pulse Ox O2 Delivery O2 Flow Rate FiO2 08/21/17 11:16 98.0 77 17 157/90 (112) 100 Orders Orders Phenytoin (Dilantin) (08/21/17 11:45) [facility] Medical Decision Making Medical Screen Exam Complete: Yes Emergency Medical Condition: Yes Medical Record Reviewed: Yes Differential Diagnosis Seizure, medication noncompliance, electrolyte imbalance, nontherapeutic Dilantin level Narrative Course 32-year-old male with history of seizures presents via EMS after a witnessed seizure. He takes Dilantin 100 mg 3 times a day and has not taken his medication this morning. States he needs a refill. Patient is alert and oriented at this time. Neuro exam is unremarkable. He follows with a neurologist, but does not know his name. He says he was last seen one month ago with normal Dilantin level. Patient is requesting a refill on his medication. He wants to leave AMA without further treatment or evaluation. The patient will be provided with a Dilantin prescription for home. Instructed patient to follow-up with neurologist. AMA: The risks of leaving against medical advice without further evaluation treatment were discussed with the patient. These risks include cardiac dysfunction, cardiac dysrhythmia, possible heart attack, possible stroke or . The patient indicated understanding of these risks and appeared to have the capacity to make this decision. Diagnosis Primary Impression: Left against medical advice Scripts Phenytoin Extended (Dilantin) 100 Mg Cap 100 MG PO TID for Control Seizures, #90 CAP 0 Refills Prov: Pauline Quiroz 08/21/17 Disposition: 07 AGAINST MEDICAL ADVICE Pauline Quiroz Aug 21, 2017 11:31
[2017-08-21] MEDS ORDERED: DILA100C PO (11:39)
[2017-08-21] MEDS ORDERED: PHENYTOIN SODIUM 100 MG CAP PO ONE (11:45)
== END 2017-08-21 12:47 | disposition left against medical advice (07) ==
LOC: NEPD 11:05
DX: R56.9 Unspecified convulsions (principal); Z72.0 Tobacco use; Z53.21 Procedure and treatment not carried out due to patient leaving prior to being seen by health care provider
CPT/HCPCS: 99283

== ENCOUNTER 2017-08-23 17:24 | Emergency (ER) | payer SELFPAY ==
[~2017-08-23] VITALS: Ht 175.3 cm; Wt 80.0 kg
[2017-08-23 17:31] VITALS: BP 141/80; PULSE 70; RESP 18; TEMP 97.7; O2SAT 98
--- NOTE | 2017-08-23 17:50 | PD ---
HPI Chief Complaint: Seizure Time Seen by Provider: 17:36 Travel History International Travel<30 days: No Contact w/Intl Traveler<30days: No Traveled to known affect area: No History of Present Illness HPI 32-year-old male complains of breakthrough seizure. Patient has history of seizure and on Dilantin. Patient brought with him the Dilantin bottle with instruction to take 100 mg 3 times a day. Patient however states that he is taking Dilantin twice a day. Patient has been to the emergency room multiple times in the past for breakthrough seizure. Dilantin levels have been subtherapeutic. Patient denies any headache. Patient denies any chest pain or shortness of breath. Patient denies abdominal pain. Patient denies any focal weakness or numbness of the extremity. PFSH Past Medical History Hx Anticoagulant Therapy: No Arthritis: No Asthma: No Autoimmune Disease: No Blood Disorders: No Anxiety: No Depression: No Heart Rhythm Problems: No Cancer: No Cardiovascular Problems: No High Cholesterol: No Chemotherapy: No Chest Pain: No Congestive Heart Failure: No COPD: No Cerebrovascular Accident: No Diabetes: No Diminished Hearing: No Endocrine: No GERD: No Genitourinary: No Headaches: Yes Hiatal Hernia: No Immune Disorder: No Kidney Stones: No Musculoskeletal: No Neurologic: Yes Psychiatric: No Reproductive: No Respiratory: No Immunizations Current: No Migraines: No Radiation Therapy: No Renal Failure: No Seizures: Yes Sickle Cell Disease: No Sleep Apnea: No Thyroid Disease: No Ulcer: No PNEUMOCCOCAL Vaccine (Year): 3 Past Surgical History Abdominal Surgery: No AICD: No Arteriovenous Shunt: No Cardiac Surgery: No Ear Surgery: No Endocrine Surgery: No Eye Surgery: No Genitourinary Surgery: No Gynecologic Surgery: No Hysterectomy: No Insulin Pump: No Joint Replacement: No Neurologic Surgery: Yes (BENIGN BRAIN TUMOR REMOVAL ) Oral Surgery: No Pacemaker: No Thoracic Surgery: No Other Surgery: Yes (R HAND) Social History Alcohol Use: No Tobacco Use: Yes Substance Use: No Allergies-Medications (Allergen,Severity, Reaction): Coded Allergies: No Known Allergies (Verified Allergy, Unknown, 07/25/17) Reported Meds & Prescriptions Reported Meds & Active Scripts Active Dilantin (Phenytoin Extended) 100 Mg Cap 100 Mg PO TID Review of Systems General / Constitutional: No: Fever Eyes: No: Visual changes HENT: No: Headaches Cardiovascular: No: Chest Pain or Discomfort Respiratory: No: Shortness of Breath Gastrointestinal: No: Abdominal Pain Genitourinary: No: Dysuria Musculoskeletal: No: Pain Skin: No Rash Neurologic: Positive: Seizures, No: Weakness Psychiatric: No: Depression Endocrine: No: Polydipsia Hematologic/Lymphatic: No: Easy Bruising Physical Exam Narrative GENERAL: Well-nourished, well-developed patient. SKIN: Focused skin assessment warm/dry. HEAD: Normocephalic. EYES: No scleral icterus. No injection or drainage. NECK: Supple, trachea midline. No JVD or lymphadenopathy. CARDIOVASCULAR: Regular rate and rhythm without murmurs, gallops, or rubs. RESPIRATORY: Breath sounds equal bilaterally. No accessory muscle use. GASTROINTESTINAL: Abdomen soft, non-tender, nondistended. MUSCULOSKELETAL: No cyanosis, or edema. BACK: Nontender without obvious deformity. No CVA tenderness. Neurologic exam normal. Data Data Last Documented VS Vital Signs Date Time Temp Pulse Resp B/P (MAP) Pulse Ox O2 Delivery O2 Flow Rate FiO2 08/23/17 17:31 97 Room Air 08/23/17 17:31 97.7 70 18 141/80 (100) Orders Orders Complete Blood Count With Diff (08/23/17 17:41) Basic Metabolic Panel (Bmp) (08/23/17 17:41) Phenytoin (Dilantin) (08/23/17 17:41) Iv Access Insert/Monitor (08/23/17 17:41) Ecg Monitoring (08/23/17 17:41) Oximetry (08/23/17 17:41) Electrocardiogram (08/23/17 ) Fosphenytoin Inj (Cerebyx Inj) (08/23/17 19:00) Labs Laboratory Tests Test 08/23/17 17:45 White Blood Count 19.1 TH/MM3 Red Blood Count 5.34 MIL/MM3 Hemoglobin 17.5 GM/DL Hematocrit 50.9 % Mean Corpuscular Volume 95.3 FL Mean Corpuscular Hemoglobin 32.7 PG Mean Corpuscular Hemoglobin Concent 34.3 % Red Cell Distribution Width 14.8 % Platelet Count 233 TH/MM3 Mean Platelet Volume 9.7 FL Neutrophils (%) (Auto) 87.0 % Lymphocytes (%) (Auto) 7.8 % Monocytes (%) (Auto) 5.1 % Eosinophils (%) (Auto) 0.0 % Basophils (%) (Auto) 0.1 % Neutrophils # (Auto) 16.6 TH/MM3 Lymphocytes # (Auto) 1.5 TH/MM3 Monocytes # (Auto) 1.0 TH/MM3 Eosinophils # (Auto) 0.0 TH/MM3 Basophils # (Auto) 0.0 TH/MM3 CBC Comment DIFF FINAL Differential Comment Blood Urea Nitrogen 16 MG/DL Creatinine 1.84 MG/DL Random Glucose 151 MG/DL Calcium Level 9.7 MG/DL Sodium Level 135 MEQ/L Potassium Level 4.6 MEQ/L Chloride Level 102 MEQ/L Carbon Dioxide Level 23.6 MEQ/L Anion Gap 9 MEQ/L Estimat Glomerular Filtration Rate 52 ML/MIN Phenytoin (Dilantin) Level 5.7 MCG/ML MDM Medical Decision Making Medical Screen Exam Complete: Yes Emergency Medical Condition: Yes Medical Record Reviewed: Yes Differential Diagnosis Differential diagnosis including breakthrough seizure, noncompliance. Narrative Course 32-year-old male with breakthrough seizure. Patient Is on Dilantin. History of noncompliance. Fosphenytoin 500 mg IV given. Diagnosis Primary Impression: Breakthrough seizure Additional Impression: Noncompliance Patient Instructions: General Instructions Additional Instructions: Advised patient to take Dilantin as directed. Follow-up with local physician for Dilantin level check. Return as needed. Med/Other Pt SpecificInfo: No Change to Meds Disposition: 01 DISCHARGE HOME Condition: Stable Marty Villa MD Aug 23, 2017 17:50
[2017-08-23 18:25] LABS: AUTOMATED NEUTROPHIL # 16.6 TH/MM3 (1.8-7.7); BASOPHIL % 0.1 % (0.0-2.0); HEMATOCRIT 50.9 % (39.0-51.0); HEMO FLAGS DIFF FINAL; LYMPH % 7.8 % (9.0-44.0); LYMPHOCYTE # 1.5 TH/MM3 (1.0-4.8); MEAN CELL VOLUME 95.3 FL (80.0-100.0); MEAN CORPUSCULAR HEMOGLOBIN 32.7 PG (27.0-34.0); MEAN CORPUSCULAR HGB CONC 34.3 % (32.0-36.0); MONO % 5.1 % (0.0-8.0); PLATELET COUNT 233 TH/MM3 (150-450); RED BLOOD COUNT 5.34 MIL/MM3 (4.50-5.90); RED CELL DISTRIBUTION WIDTH 14.8 % (11.6-17.2); WHITE BLOOD COUNT 19.1 TH/MM3 (4.0-11.0)
[2017-08-23 18:35] LABS: BICARBONATE 23.6 MEQ/L (21.0-32.0)
[2017-08-23 18:36] LABS: POTASSIUM 4.6 MEQ/L (3.5-5.1)
[2017-08-23] MEDS ORDERED: FOSPHENYTOIN SODIUM 500 MG PE/10 ML VIAL IV ONE (19:00)
[2017-08-23 19:25] VITALS: BP 113/57; PULSE 75; RESP 15; O2SAT 98
[2017-08-23] MEDS ORDERED: FOSPHENYTOIN INJ 500 MGPE in SODIUM CHLORIDE 0.9% INJ 50 ML IV ONE (19:30)
--- NOTE | 2017-08-25 23:21 | EKG ---
Date Performed: 08/23/2017 Time Performed: 17:41:53 PTAGE: 32 years EKG: Sinus rhythm WITH FIRST DEGREE AV BLOCK BORDERLINE RIGHT AXIS DEVIATION ST ELEVATION, PROBABLY EARLY REPOLARIZATI ON ABNORMAL ECG NO PREVIOUS TRACING DOCTOR: Wilian Smart Interpretating Date/Time 08/25/2017 23:20:08
== END 2017-08-23 20:37 | disposition home or self-care (01) ==
LOC: NEPC 17:24
DX: R56.9 Unspecified convulsions (principal); I44.0 Atrioventricular block, first degree; R94.31 Abnormal electrocardiogram [ECG] [EKG]; Z91.14 Patient's other noncompliance with medication regimen; Z72.0 Tobacco use
CPT/HCPCS: 80048; 80185; 85025; 93005; 96374; 99284; Q2009

== ENCOUNTER 2017-08-26 19:39 | Emergency (ER) | payer SELFPAY ==
[2017-08-26 20:07] VITALS: BP 186/81; PULSE 88; RESP 25; TEMP 98.5; O2SAT 100
[2017-08-26] MEDS ORDERED: SODIUM CHLOR 0.9% 1000 ML INJ 1,000 ML IV SCH (20:27)
--- NOTE | 2017-08-26 20:29 | PD ---
HPI Chief Complaint: Psychiatric Symptoms Time Seen by Provider: 20:25 Travel History International Travel<30 days: No Contact w/Intl Traveler<30days: No Traveled to known affect area: No History of Present Illness HPI The patient is a 32 year old male who presents to the [facility] emergency department with a history of lightheaded sensation that he complained about his family prior to her arrival. His mother reports that he used marijuana earlier today, and she thinks that he may have had a bad reaction to it. He now complains of a sensation of his heart pounding out of his chest with chest pain and shortness of breath. He last took Dilantin this AM. On Saturday he had 3 seizures back to back in the shower. He hit his head. He was seen in the ER regarding this and noted to have a subtherapeutic Dilantin level. From reviewing the electronic medical record his Dilantin level is nearly always subtherapeutic. He does not have a neurologist. He does however have a primary care physician. His mother denies him having any prior history of psychiatric disorder. 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 On review systems otherwise, he denies having any recent fevers, cough, congestion, neck pain, abdominal pain, vomiting, diarrhea, urinary symptoms, or other neurologic symptoms. [facility] Past Medical History Narrative Medical The patient's past medical history is significant for Seizures, benign brain tumor resection. PCP: Dr. Canchola. Hx Anticoagulant Therapy: No Arthritis: No Asthma: No Autoimmune Disease: No Blood Disorders: No Anxiety: No Depression: No Heart Rhythm Problems: No Cancer: No Cardiovascular Problems: No High Cholesterol: No Chemotherapy: No Chest Pain: No Congestive Heart Failure: No COPD: No Cerebrovascular Accident: No Diabetes: No Diminished Hearing: No Endocrine: No GERD: No Genitourinary: No Headaches: Yes Hiatal Hernia: No Immune Disorder: No Kidney Stones: No Musculoskeletal: No Neurologic: Yes Psychiatric: No Reproductive: No Respiratory: No Immunizations Current: No Migraines: No Radiation Therapy: No Renal Failure: No Seizures: Yes Sickle Cell Disease: No Sleep Apnea: No Thyroid Disease: No Ulcer: No Tetanus Vaccination: < 5 Years Influenza Vaccination: Yes PNEUMOCCOCAL Vaccine (Year): 3 Past Surgical History Narrative Surgical The patient's past surgical history is significant for brain tumor resection- 8 years ago. Abdominal Surgery: No AICD: No Arteriovenous Shunt: No Cardiac Surgery: No Ear Surgery: No Endocrine Surgery: No Eye Surgery: No Genitourinary Surgery: No Gynecologic Surgery: No Hysterectomy: No Insulin Pump: No Joint Replacement: No Neurologic Surgery: Yes (BENIGN BRAIN TUMOR REMOVAL ) Oral Surgery: No Pacemaker: No Thoracic Surgery: No Other Surgery: Yes (R HAND) Social History Alcohol Use: No Tobacco Use: No Substance Use: Yes (MARIJUANA) Allergies-Medications (Allergen,Severity, Reaction): Coded Allergies: No Known Allergies (Verified Allergy, Unknown, 07/25/17) Reported Meds & Prescriptions Reported Meds & Active Scripts Active Dilantin (Phenytoin Extended) 100 Mg Cap 100 Mg PO TID Review of Systems Except as stated in HPI: all other systems reviewed are Neg General / Constitutional: No: Fever Eyes: No: Visual changes HENT: No: Headaches Cardiovascular: Positive: Chest Pain or Discomfort, Palpitations, Dyspnea on exertion Respiratory: Positive: Shortness of Breath Gastrointestinal: No: Abdominal Pain Genitourinary: No: Dysuria Musculoskeletal: No: Pain Skin: No Rash Neurologic: Positive: Change in Mentation, Seizures (on Saturday), No: Weakness , Focal Abnormalities Psychiatric: Positive: Anxiety, Substance Abuse, No: Depression, Suicidal Ideations, Homicidal Ideation Endocrine: No: Polydipsia Hematologic/Lymphatic: No: Easy Bruising Physical Exam Narrative General: The patient is a well-developed well-nourished male in no acute distress. Head and Neck exam: Head is normocephalic atraumatic. Eyes: EOMI, pupils are equal round and reactive to light. Nose: Midline septum with pink mucous membranes Mouth: Dentition unremarkable. Moist mucus membranes. Posterior oropharynx is not erythematous. No tonsillar hypertrophy. Uvula midline. Airway patent. Neck: No palpable lymphadenopathy. No nuchal rigidity. No thyromegaly. Cardiovascular: Sinus tachycardia in the low 100 without murmurs, gallops, or rubs. No pulse deficit to the extremities simultaneous auscultation and palpation of his radial artery. Lungs: Clear to auscultation bilaterally. No wheezes, rhonchi, or rales. Abdomen: Soft, without tenderness to palpation in all 4 quadrants of the abdomen. No guarding, rebound, or rigidity. Negative [place] sign. Extremities: No clubbing, cyanosis, or edema. 2+ pulses in all 4 extremities. Back: No spinous process tenderness to palpation. No costovertebral angle tenderness to palpation. Neurologic Exam: Cranial nerves 2-12 were intact on exam. Strength is 5/5 in all 4 extremities. No sensory deficits noted. The patient is anxious appearing on examination with pressured speech. Skin Exam: No rash noted. Intact skin that is warm and dry. Data Data Last Documented VS Vital Signs Date Time Temp Pulse Resp B/P (MAP) Pulse Ox O2 Delivery O2 Flow Rate FiO2 08/26/17 20:07 98.5 88 25 186/81 (116) 100 Room Air Orders Orders Electrocardiogram (08/26/17 20:27) Complete Blood Count With Diff (08/26/17 20:27) Comprehensive Metabolic Panel (08/26/17 20:27) Creatine Kinase (Cpk) (08/26/17 20:27) Prothrombin Time / Inr (Pt) (08/26/17 20:27) Act Partial Throm Time (Ptt) (08/26/17 20:27) Troponin I (08/26/17 20:27) Thyroid Stimulating Hormone (08/26/17 20:27) Urinalysis - C+S If Indicated (08/26/17 20:27) Chest, Single Ap (08/26/17 20:27) Ct Brain W/O Iv Contrast(Rout) (08/26/17 20:27) Blood Glucose (08/26/17 20:27) Ecg Monitoring (08/26/17 20:27) Iv Access Insert/Monitor (08/26/17 20:27) Oximetry (08/26/17 20:27) Sodium Chloride 0.9% Flush (Ns Flush) (08/26/17 20:30) Sodium Chlor 0.9% 1000 Ml Inj (Ns 1000 M (08/26/17 20:27) Drug Screen, Random Urine (08/26/17 20:27) Alcohol (Ethanol) (08/26/17 20:27) Tylenol (Acetaminophen) (08/26/17 20:27) Salicylates (Aspirin) (08/26/17 20:27) Phenytoin (Dilantin) (08/26/17 20:27) Lorazepam Inj (Ativan Inj) (08/26/17 21:30) Aspirin Chew (Aspirin Chew) (08/26/17 21:30) Oral Rehydration (08/26/17 22:08) Sodium Chlor 0.9% 1000 Ml Inj (Ns 1000 M (08/26/17 22:15) Potassium Chloride Eff (K-Lyte Cl Eff) (08/26/17 22:15) Phenytoin (Dilantin) (08/26/17 22:15) Labs Laboratory Tests Test 08/26/17 20:20 White Blood Count 12.9 TH/MM3 Red Blood Count 4.66 MIL/MM3 Hemoglobin 14.9 GM/DL Hematocrit 44.3 % Mean Corpuscular Volume 95.0 FL Mean Corpuscular Hemoglobin 32.0 PG Mean Corpuscular Hemoglobin Concent 33.7 % Red Cell Distribution Width 13.7 % Platelet Count 222 TH/MM3 Mean Platelet Volume 9.0 FL Neutrophils (%) (Auto) 43.6 % Lymphocytes (%) (Auto) 48.7 % Monocytes (%) (Auto) 6.2 % Eosinophils (%) (Auto) 1.0 % Basophils (%) (Auto) 0.5 % Neutrophils # (Auto) 5.6 TH/MM3 Lymphocytes # (Auto) 6.3 TH/MM3 Monocytes # (Auto) 0.8 TH/MM3 Eosinophils # (Auto) 0.1 TH/MM3 Basophils # (Auto) 0.1 TH/MM3 CBC Comment AUTO DIFF Differential Total Cells Counted 100 Neutrophils % (Manual) 45 % Lymphocytes % 48 % Monocytes % 7 % Neutrophils # (Manual) 5.8 TH/MM3 Differential Comment FINAL DIFF MANUAL Atypical Lymphocytes % Platelet Estimate NORMAL Platelet Morphology Comment NORMAL Tear Drop Cells 1+ Prothrombin Time 10.4 SEC Prothromb Time International Ratio 1.0 RATIO Activated Partial Thromboplast Time 22.3 SEC Blood Urea Nitrogen 17 MG/DL Creatinine 1.60 MG/DL Random Glucose 166 MG/DL Total Protein 7.9 GM/DL Albumin 4.1 GM/DL Calcium Level 8.5 MG/DL Alkaline Phosphatase 109 U/L Aspartate Amino Transf (AST/SGOT) 27 U/L Alanine Aminotransferase (ALT/SGPT) 34 U/L Total Bilirubin 0.3 MG/DL Sodium Level 137 MEQ/L Potassium Level 2.9 MEQ/L Chloride Level 100 MEQ/L Carbon Dioxide Level 23.6 MEQ/L Anion Gap 13 MEQ/L Estimat Glomerular Filtration Rate 61 ML/MIN Total Creatine Kinase 179 U/L Troponin I LESS THAN 0.02 NG/ML Thyroid Stimulating Hormone 3rd Gen 1.320 uIU/ML Salicylates Level 4.1 MG/DL Acetaminophen Level LESS THAN 2.0 MCG/ML Phenytoin (Dilantin) Level 6.6 MCG/ML Ethyl Alcohol Level LESS THAN 3 MG/DL MDM Medical Decision Making Medical Screen Exam Complete: Yes Emergency Medical Condition: Yes Medical Record Reviewed: Yes Interpretation(s) Last Impressions Head CT 08/26/172026 Signed Impressions: Service Date/Time: Saturday, August 26, 2017 21:57 - CONCLUSION: No acute disease. Chivo Roldan MD Chest X-Ray 08/26/172026 Signed Impressions: Service Date/Time: Saturday, August 26, 2017 20:42 - CONCLUSION: No acute disease. Chivo Roldan MD Differential Diagnosis Sympathomimetic intoxication, versus acute psychosis related to psychiatric disorder, versus intracranial abnormality Narrative Course During the course of the patients emergency department visit, the patients history, examination, and differential diagnosis were reviewed with the patient. The patient was placed on a cardiac cath rn with oximetry and frequent blood pressure monitoring. The patient had IV access obtained and blood work sent for analysis. The patient's electronic medical record was reviewed. A CT scan of the brain was done during his last evaluation. The patient does report that he hit his head in the shower. A CT scan of the brain will be ordered. The patient was initially provided Ativan for acute anxiety and agitation. The patient was started on normal saline 1 L IV fluid bolus. The patients laboratory studies were reviewed and remarkable for a white count of 12.9 which is compared to prior results on August 23 and is decreased from 19.1, hemoglobin 14.9, platelets 222 with 48.7 lymphocytes, CMP shows a potassium of 2.9 which was supplemented orally, creatinine 1.60 which is improved compared to previously, glucose 166, CPK 179, troponin I less than 0.02 , TSH 1.32, PT 10.4, PTT 22.3, Dilantin level is subtherapeutic at 6.6. The patient was given Dilantin 200 mg by mouth 1. Alcohol level is less than 3, salicylate 4.1. Acetaminophen less than 2. Radiology studies were reviewed and remarkable for a CT scan of the brain that shows no acute abnormality, a chest x-ray shows no acute cardiopulmonary disease. The patient is instructed regarding the importance of taking his Dilantin on a regular basis and avoiding any street drugs. The patient will be discharged home with a short course of potassium supplementation. The patient was given a second liter of normal saline IV fluids. The patient was started on oral rehydration was feeling improved. The patient is resting comfortably and feels better, is alert and in no distress. The patients results and examination findings were discussed with the patient. The repeat examination is unremarkable and benign. The history, exam, diagnostic testing, and current condition do not suggest any significant pathology to warrant further testing, continued ED treatment, admission, or surgical evaluation at this point. The vital signs have been stable. The patient does not have uncontrollable pain, intractable vomiting, or other significant symptoms. The patient's condition is stable and appropriate for discharge. The patient will pursue further outpatient evaluation with a primary care physician or other designated or consulting physician as indicated in the discharge instructions. The patient expressed understanding and was agreeable with this plan. Diagnosis Primary Impression: Palpitations Additional Impressions: Marijuana use Subtherapeutic serum dilantin level Referrals: Primary Care Physician 2 days Patient Instructions: Cannabis Abuse (ED), General Instructions, Heart Palpitations (ED) Med/Other Pt SpecificInfo: Prescription(s) given Scripts Potassium Chloride ER (K-Tab) 20 Meq Tab 20 MEQ PO BID for Electrolyte Replacement for 5 Days, #10 TAB 0 Refills Prov: Carleen Cardona MD 08/26/17 Disposition: 01 DISCHARGE HOME Condition: Stable Carleen Cardona MD Aug 26, 2017 20:29
[2017-08-26] MEDS ORDERED: SODIUM CHLORIDE 0.9% FLUSH 10 ML FLUSH IV FLUSH PRN (20:30)
[2017-08-26 21:14] LABS: AUTOMATED NEUTROPHIL # 5.6 TH/MM3 (1.8-7.7); BASOPHIL # 0.1 TH/MM3 (0-0.2); BASOPHIL % 0.5 % (0.0-2.0); EOSINOPHIL # 0.1 TH/MM3 (0-0.4); HEMATOCRIT 44.3 % (39.0-51.0); LYMPH % 48.7 % (9.0-44.0); LYMPHOCYTE # 6.3 TH/MM3 (1.0-4.8); MEAN CORPUSCULAR HGB CONC 33.7 % (32.0-36.0); MONO % 6.2 % (0.0-8.0); NEUT % 43.6 % (16.0-70.0); PLATELET COUNT 222 TH/MM3 (150-450); RED BLOOD COUNT 4.66 MIL/MM3 (4.50-5.90); RED CELL DISTRIBUTION WIDTH 13.7 % (11.6-17.2); WHITE BLOOD COUNT 12.9 TH/MM3 (4.0-11.0)
[2017-08-26 21:16] LABS: HEMO FLAGS AUTO DIFF
--- NOTE | 2017-08-26 21:16 | RADRPT ---
EXAM DATE/TIME: 08/26/2017 20:42 [facility] COMPARISON: CHEST SINGLE AP, September 21, 2013, 4:35. INDICATIONS : Altered mental status. MEDICAL HISTORY : Seizures. SURGICAL HISTORY : Brain surgery. ENCOUNTER: Initial ACUITY: 1 day PAIN SCORE: Non-responsive. LOCATION: Bilateral chest FINDINGS: A single view of the chest demonstrates the lungs to be symmetrically aerated without evidence of mas s, infiltrate or effusion. The cardiomediastinal contours are unremarkable. Osseous structures are intact. CONCLUSION: No acute disease. Chivo Roldan MD on August 26, 2017 at 21:13 Board Certified Radiologist. This report was verified electronically.
[2017-08-26 21:30] LABS: APTT (PATIENT) 22.3 SEC (24.3-30.1); PROTHROMBIN TIME - PATIENT 10.4 SEC (9.8-11.6)
[2017-08-26] MEDS ORDERED: ASPIRIN 81 MG CHEW TAB CHEW ONE (21:30)
[2017-08-26] MEDS ORDERED: LORazepam 2 MG/ML VIAL IV PUSH ONE (21:30)
[2017-08-26 21:49] LABS: NEUTROPHIL # MANUAL DIFF 5.8 TH/MM3 (1.8-7.7); POLYS (SEG NEUTROPHILS) 45 % (16-70); SCAN/DIFF FINAL DIFF MANUAL; WBC DIFF SAMPLE 100
[2017-08-26 21:52] LABS: PLATELET ESTIMATE SMEAR NORMAL (NORMAL); PLATELET MORPHOLOGY NORMAL (NORMAL)
[2017-08-26 21:53] LABS: ACETAMINOPHEN LESS THAN 2.0 MCG/ML (10.0-30.0); ALKALINE PHOSPHATASE 109 U/L (45-117); ALT (GPT) 34 U/L (12-78); ANION GAP 13 MEQ/L (5-15); AST (GOT) 27 U/L (15-37); BICARBONATE 23.6 MEQ/L (21.0-32.0); BLOOD UREA NITROGEN 17 MG/DL (7-18); CHLORIDE 100 MEQ/L (98-107); CREATINE KINASE 179 U/L (39-308); GLOMERULAR FILTRATION RATE 61 ML/MIN (>89); SODIUM (NA) 137 MEQ/L (136-145); TEARDROP RBCS 1+ (NORMAL); TOTAL BILIRUBIN ADULT 0.3 MG/DL (0.2-1.0)
[2017-08-26 22:06] LABS: ALCOHOL LESS THAN 3 MG/DL (0-5)
[2017-08-26 22:07] LABS: POTASSIUM 2.9 MEQ/L (3.5-5.1)
--- NOTE | 2017-08-26 22:09 | RADRPT ---
EXAM DATE/TIME: 08/26/2017 21:57 [facility] COMPARISON: CT BRAIN W/O CONTRAST, August 30, 2016, 20:24. INDICATIONS : Seizure. RADIATION DOSE: 42.43 CTDIvol (mGy) MEDICAL HISTORY : Seizures. SURGICAL HISTORY : Craniotomy. ENCOUNTER: Initial ACUITY: 1 day PAIN SCALE: 0/10 LOCATION: cranial TECHNIQUE: Multiple contiguous axial images were obtained of the head. Using automated exposure control and adj ustment of the mA and/or kV according to patient size, radiation dose was kept as low as reasonably a chievable to obtain optimal diagnostic quality images. DICOM format image data is available electro nically for review and comparison. FINDINGS: CEREBRUM: The ventricles are normal for age. No evidence of midline shift, mass lesion, hemorrhage or acute in farction. No extra-axial fluid collections are seen. POSTERIOR FOSSA: The cerebellum and brainstem are intact. The 4th ventricle is midline. The cerebellopontine angle i s unremarkable. EXTRACRANIAL: The visualized portion of the orbits is intact. SKULL: The calvaria is intact. No evidence of skull fracture. CONCLUSION: No acute disease. Chivo Roldan MD on August 26, 2017 at 22:05 Board Certified Radiologist. This report was verified electronically.
[2017-08-26] MEDS ORDERED: POTASSIUM CHLORIDE 25 MEQ EFFERVESCENT TAB PO ONE (22:15)
[2017-08-26] MEDS ORDERED: SODIUM CHLOR 0.9% 1000 ML INJ 1,000 ML IV ONE (22:15)
[2017-08-26] MEDS ORDERED: PHENYTOIN SODIUM 100 MG CAP PO ONE (22:15)
[2017-08-26] MEDS ORDERED: POTA1TAB4 PO (22:52)
[2017-08-26 23:32] LABS: BLOOD, URINE NEG (NEG); COMMENT (UR) CULT NOT INDICATED; CULTURE IF INDICATED CULT NOT INDICATED; GLUCOSE,URINE NEG (NEG); KETONE, URINE NEG (NEG); MUCUS URINE FEW /lpf (OCC); NITRITE,URINE NEG (NEG); PH, URINE 5.5 (5.0-8.5); SQUAMOUS EPITHELIAL CELL URINE <1 /hpf (0-5); URINE COLOR YELLOW (YELLW/STRAW)
--- NOTE | 2017-08-27 16:35 | EKG ---
Date Performed: 08/26/2017 Time Performed: 19:37:32 PTAGE: 32 years EKG: SINUS TACHYCARDIA POSSIBLE LEFT ATRIAL ENLARGEMENT BORDERLINE RIGHT AXIS DEVIATION Possible left ventricular hypertrophy. When compared to previous tracing, the fairly diffuse ST elevation Is no longer evident, and there has been an increase in the heart Rate. Clinical corrolation is advised. ABNORMAL RHYTHM ECG PREVIOUS TRACING : 08/23/2017 17.41 DOCTOR: Ariadna Tellez Interpretating Date/Time 08/27/2017 16:34:38
== END 2017-08-26 23:36 | disposition home or self-care (01) ==
LOC: NEPC 19:39
DX: R00.2 Palpitations (principal); F12.90 Cannabis use, unspecified, uncomplicated; R07.9 Chest pain, unspecified; R06.02 Shortness of breath; R56.9 Unspecified convulsions; R00.0 Tachycardia, unspecified; R94.31 Abnormal electrocardiogram [ECG] [EKG]
CPT/HCPCS: 70450; 71010; 80053; 80185; 80307; 81001; 82550; 84443; 84484; 85007; 85027; 85610; 85730; 93005; 96361; 96374; 99285; J2060; J7030

== ENCOUNTER 2017-08-28 08:45 | Emergency (ER) | payer SELFPAY ==
[~2017-08-28] VITALS: Ht 180.3 cm; Wt 87.0 kg
[~2017-08-28 08:45] MED LIST changes: +POTA1TAB4 PO
[2017-08-28 08:46] VITALS: BP 166/92; PULSE 69; RESP 14; TEMP 98.4; O2SAT 100
[2017-08-28 09:28] VITALS: O2SAT 98
[2017-08-28] MEDS ORDERED: SODIUM CHLORIDE 0.9% FLUSH 10 ML FLUSH IVF PRN (09:30)
--- NOTE | 2017-08-28 09:48 | PD ---
HPI Chief Complaint: Seizure Time Seen by Provider: 09:45 Travel History International Travel<30 days: No Contact w/Intl Traveler<30days: No Traveled to known affect area: No History of Present Illness HPI 32-year-old male patient with history of seizures currently on Dilantin, does not have neurology follow-up, had breakthrough seizures on Saturday in the shower according to his mother, had hit his head at that time, had been evaluated on Saturday and had a CAT scan which was negative on Saturday, presents back to the ER today because he states that he feels like he is about to have a seizure, feels like his neck and his arm is tightening up, but has not had any further seizures. He did take his medications as prescribed today. Modifying Factors: None Associated Signs & Symptoms: Evaluation for not feeling right, like he is going to have a seizure Risk Factors: History of seizures, on Dilantin PFSH Past Medical History Hx Anticoagulant Therapy: No Arthritis: No Asthma: No Autoimmune Disease: No Blood Disorders: No Anxiety: No Depression: No Heart Rhythm Problems: No Cancer: No Cardiovascular Problems: No High Cholesterol: No Chemotherapy: No Chest Pain: No Congestive Heart Failure: No COPD: No Cerebrovascular Accident: No Diabetes: No Diminished Hearing: No Endocrine: No GERD: No Genitourinary: No Headaches: Yes Hiatal Hernia: No Immune Disorder: No Kidney Stones: No Musculoskeletal: No Neurologic: Yes Psychiatric: No Reproductive: No Respiratory: No Immunizations Current: No Migraines: No Radiation Therapy: No Renal Failure: No Seizures: Yes Sickle Cell Disease: No Sleep Apnea: No Thyroid Disease: No Ulcer: No Tetanus Vaccination: < 5 Years Influenza Vaccination: Yes PNEUMOCCOCAL Vaccine (Year): 3 Past Surgical History Abdominal Surgery: No AICD: No Arteriovenous Shunt: No Cardiac Surgery: No Ear Surgery: No Endocrine Surgery: No Eye Surgery: No Genitourinary Surgery: No Gynecologic Surgery: No Hysterectomy: No Insulin Pump: No Joint Replacement: No Neurologic Surgery: Yes (BENIGN BRAIN TUMOR REMOVAL ) Oral Surgery: No Pacemaker: No Thoracic Surgery: No Other Surgery: Yes (R HAND) Social History Alcohol Use: Yes (SOCIALLY ) Tobacco Use: No Substance Use: Yes (MARIJUANA DAILY) Allergies-Medications (Allergen,Severity, Reaction): Coded Allergies: No Known Allergies (Verified Allergy, Unknown, 07/25/17) Reported Meds & Prescriptions Reported Meds & Active Scripts Active K-Tab (Potassium Chloride) 20 Meq Tab 20 Meq PO BID 5 Days Dilantin (Phenytoin Extended) 100 Mg Cap 100 Mg PO TID Review of Systems Except as stated in HPI: all other systems reviewed are Neg Physical Exam Narrative GENERAL: Well-developed young -[place] male patient currently in mild distress. Awake and oriented 3. SKIN: Focused skin assessment warm/dry. HEAD: Atraumatic. Normocephalic. EYES: Pupils equal and round. No scleral icterus. No injection or drainage. ENT: No nasal bleeding or discharge. Mucous membranes pink and moist. NECK: Trachea midline. No JVD. CARDIOVASCULAR: Regular rate and rhythm. No murmur appreciated. RESPIRATORY: No accessory muscle use. Clear to auscultation. Breath sounds equal bilaterally. GASTROINTESTINAL: Abdomen soft, non-tender, nondistended. Hepatic and splenic margins not palpable. MUSCULOSKELETAL: No obvious deformities. No clubbing. No cyanosis. No edema. NEUROLOGICAL: Awake and alert. No obvious cranial nerve deficits. Motor grossly within normal limits. Normal speech. PSYCHIATRIC: Appropriate mood and affect; insight and judgment normal. Data Data Last Documented VS Vital Signs Date Time Temp Pulse Resp B/P (MAP) Pulse Ox O2 Delivery O2 Flow Rate FiO2 08/28/17 09:28 98 Room Air 08/28/17 09:18 18 08/28/17 08:46 98.4 69 Orders Orders Complete Blood Count With Diff (08/28/17 09:23) Phenytoin (Dilantin) (08/28/17 09:23) Blood Glucose (08/28/17 09:23) Ecg Monitoring (08/28/17 09:23) Iv Access Insert/Monitor (08/28/17 09:23) Oximetry (08/28/17 09:23) Comprehensive Metabolic Panel (08/28/17 09:23) Sodium Chloride 0.9% Flush (Ns Flush) (08/28/17 09:30) Phenytoin (Dilantin) (08/28/17 10:30) Labs Laboratory Tests Test 08/28/17 09:30 White Blood Count 6.4 TH/MM3 Red Blood Count 4.44 MIL/MM3 Hemoglobin 14.3 GM/DL Hematocrit 42.1 % Mean Corpuscular Volume 94.8 FL Mean Corpuscular Hemoglobin 32.2 PG Mean Corpuscular Hemoglobin Concent 33.9 % Red Cell Distribution Width 14.1 % Platelet Count 197 TH/MM3 Mean Platelet Volume 8.6 FL Neutrophils (%) (Auto) 50.5 % Lymphocytes (%) (Auto) 40.7 % Monocytes (%) (Auto) 7.5 % Eosinophils (%) (Auto) 1.1 % Basophils (%) (Auto) 0.2 % Neutrophils # (Auto) 3.2 TH/MM3 Lymphocytes # (Auto) 2.6 TH/MM3 Monocytes # (Auto) 0.5 TH/MM3 Eosinophils # (Auto) 0.1 TH/MM3 Basophils # (Auto) 0.0 TH/MM3 CBC Comment DIFF FINAL Differential Comment Blood Urea Nitrogen 9 MG/DL Creatinine 1.33 MG/DL Random Glucose 97 MG/DL Total Protein 7.4 GM/DL Albumin 4.0 GM/DL Calcium Level 9.0 MG/DL Alkaline Phosphatase 95 U/L Aspartate Amino Transf (AST/SGOT) 18 U/L Alanine Aminotransferase (ALT/SGPT) 36 U/L Total Bilirubin 0.2 MG/DL Sodium Level 140 MEQ/L Potassium Level 4.3 MEQ/L Chloride Level 107 MEQ/L Carbon Dioxide Level 27.9 MEQ/L Anion Gap 5 MEQ/L Estimat Glomerular Filtration Rate 76 ML/MIN Phenytoin (Dilantin) Level 8.8 MCG/ML [facility] Medical Decision Making Medical Screen Exam Complete: Yes Emergency Medical Condition: Yes Medical Record Reviewed: Yes Interpretation(s) Laboratory Tests Test 08/28/17 09:30 Red Blood Count 4.44 MIL/MM3 (4.50-5.90) Creatinine 1.33 MG/DL (0.60-1.30) Estimat Glomerular Filtration Rate 76 ML/MIN (>89) Phenytoin (Dilantin) Level 8.8 MCG/ML (10.0-20.0) Differential Diagnosis History of seizures, muscle cramps, not feeling right: Metabolic issues versus breakthrough seizures versus decreased Dilantin levels Narrative Course Lab work did not show significant metabolic issues. His Dilantin level is subtherapeutic. He was given a extra dose of by mouth Dilantin. He is given a new prescription of Dilantin and with an increased dose. He will need further follow-up with primary care physician and neurology regarding dosing of Dilantin and control seizures. Return for any worsening in seizures or new symptoms as needed. The plan has been discussed with the patient and he states understanding. Diagnosis Primary Impression: Subtherapeutic serum dilantin level Med/Other Pt SpecificInfo: Med Stopped (current Dilantin prescription, or talk to the pharmacist medication regimen) Scripts Phenytoin Extended (Dilantin) 100 Mg Cap 200 MG PO TID for Control Seizures, #180 CAP 0 Refills Prov: Toni Quintana MD 08/28/17 Disposition: 01 DISCHARGE HOME Condition: Stable Toni Quintana MD Aug 28, 2017 09:48
[2017-08-28 09:49] LABS: AUTOMATED NEUTROPHIL # 3.2 TH/MM3 (1.8-7.7); BASOPHIL % 0.2 % (0.0-2.0); EOSINOPHIL # 0.1 TH/MM3 (0-0.4); EOSINOPHIL % 1.1 % (0.0-4.0); HEMATOCRIT 42.1 % (39.0-51.0); HEMO FLAGS DIFF FINAL; LYMPH % 40.7 % (9.0-44.0); LYMPHOCYTE # 2.6 TH/MM3 (1.0-4.8); MEAN CELL VOLUME 94.8 FL (80.0-100.0); MEAN CORPUSCULAR HEMOGLOBIN 32.2 PG (27.0-34.0); MEAN CORPUSCULAR HGB CONC 33.9 % (32.0-36.0); MONO % 7.5 % (0.0-8.0); NEUT % 50.5 % (16.0-70.0); PLATELET COUNT 197 TH/MM3 (150-450); RED BLOOD COUNT 4.44 MIL/MM3 (4.50-5.90); RED CELL DISTRIBUTION WIDTH 14.1 % (11.6-17.2); WHITE BLOOD COUNT 6.4 TH/MM3 (4.0-11.0)
[2017-08-28 10:19] LABS: ALKALINE PHOSPHATASE 95 U/L (45-117); ALT (GPT) 36 U/L (12-78); ANION GAP 5 MEQ/L (5-15); AST (GOT) 18 U/L (15-37); BICARBONATE 27.9 MEQ/L (21.0-32.0); BLOOD UREA NITROGEN 9 MG/DL (7-18); CHLORIDE 107 MEQ/L (98-107); GLOMERULAR FILTRATION RATE 76 ML/MIN (>89); POTASSIUM 4.3 MEQ/L (3.5-5.1); SODIUM (NA) 140 MEQ/L (136-145); TOTAL BILIRUBIN ADULT 0.2 MG/DL (0.2-1.0)
[2017-08-28] MEDS ORDERED: PHENYTOIN SODIUM 100 MG CAP PO ONE (10:30)
[2017-08-28] MEDS ORDERED: DILA100C PO (10:32)
[2017-08-28] MEDS ORDERED: PHENYTOIN INJ 100 MG/2 ML VIAL IV PUSH ONE (11:15)
== END 2017-08-28 13:10 | disposition home or self-care (01) ==
LOC: NEPE 08:45
DX: R56.9 Unspecified convulsions (principal)
CPT/HCPCS: 80053; 80185; 85025; 96374; 99284; J1165

== ENCOUNTER 2017-09-24 16:39 | Emergency (ER) | payer SELFPAY ==
[~2017-09-24] VITALS: Ht 180.3 cm; Wt 86.4 kg
[2017-09-24 16:42] VITALS: BP 134/73; PULSE 77; RESP 14; TEMP 98.8; O2SAT 96
[2017-09-24] MEDS ORDERED: SODIUM CHLORIDE 0.9% FLUSH 10 ML FLUSH IVF PRN (18:45)
--- NOTE | 2017-09-24 19:01 | PD ---
HPI Chief Complaint: Seizure Time Seen by Provider: 18:31 Travel History International Travel<30 days: No Contact w/Intl Traveler<30days: No Traveled to known affect area: No History of Present Illness HPI 32-year-old male with a history of seizures presents to emergency department with a seizure that occurred prior to arrival. Patient states it was about 3: 00p when he had the seizure and he woke up to the family looking over him. States that he was in bed at the time this occurred. Denies head trauma or neck pain. Patient states that he does have a headache located in left perianal region but this is normal after his seizures. States that his family drove him here. His stepfather was able to ride some of the history. States his seizures are "whole body" and are grand mal in nature. Patient states he had one seizure in August. He has not followed up with neurology in 1 month. He does not remember the name of several neurologists. Patient initially said that he was here at the emergency department this morning when and reality he was in his probation office. Patient states he does not remember this. His stepfather says he was "going through something". States that he was not having a seizure at the time of this event. States he does not know if he bit his tongue. Denies urinary incontinence. Denies fever, chills. PFSH Past Medical History Hx Anticoagulant Therapy: No Arthritis: No Asthma: No Autoimmune Disease: No Blood Disorders: No Anxiety: No Depression: No Heart Rhythm Problems: No Cancer: No Cardiovascular Problems: No High Cholesterol: No Chemotherapy: No Chest Pain: No Congestive Heart Failure: No COPD: No Cerebrovascular Accident: No Diabetes: No Diminished Hearing: No Endocrine: No GERD: No Genitourinary: No Headaches: Yes Hiatal Hernia: No Immune Disorder: No Kidney Stones: No Musculoskeletal: No Neurologic: Yes Psychiatric: No Reproductive: No Respiratory: No Immunizations Current: No Migraines: No Radiation Therapy: No Renal Failure: No Seizures: Yes Sickle Cell Disease: No Sleep Apnea: No Thyroid Disease: No Ulcer: No PNEUMOCCOCAL Vaccine (Year): 3 Past Surgical History Abdominal Surgery: No AICD: No Arteriovenous Shunt: No Cardiac Surgery: No Ear Surgery: No Endocrine Surgery: No Eye Surgery: No Genitourinary Surgery: No Gynecologic Surgery: No Hysterectomy: No Insulin Pump: No Joint Replacement: No Neurologic Surgery: Yes (BENIGN BRAIN TUMOR REMOVAL ) Oral Surgery: No Pacemaker: No Thoracic Surgery: No Other Surgery: Yes (R HAND) Social History Alcohol Use: Yes (SOCIALLY ) Tobacco Use: No Substance Use: Yes (MARIJUANA DAILY) Allergies-Medications (Allergen,Severity, Reaction): Coded Allergies: No Known Allergies (Verified Allergy, Unknown, 07/25/17) Reported Meds & Prescriptions Reported Meds & Active Scripts Active Dilantin (Phenytoin Extended) 100 Mg Cap 200 Mg PO TID K-Tab (Potassium Chloride) 20 Meq Tab 20 Meq PO BID 5 Days Dilantin (Phenytoin Extended) 100 Mg Cap 100 Mg PO TID Review of Systems Except as stated in HPI: all other systems reviewed are Neg Physical Exam Narrative GENERAL: Well-developed well-nourished in no apparent distress SKIN: Focused skin assessment warm/dry. HEAD: Atraumatic. Normocephalic. EYES: Pupils equal and round. No scleral icterus. No injection or drainage. ENT: No nasal bleeding or discharge. Mucous membranes pink and moist. NECK: Trachea midline. No JVD. CARDIOVASCULAR: Regular rate and rhythm. No murmur appreciated. RESPIRATORY: No accessory muscle use. Clear to auscultation. Breath sounds equal bilaterally. GASTROINTESTINAL: Abdomen soft, non-tender, nondistended. Hepatic and splenic margins not palpable. MUSCULOSKELETAL: No obvious deformities. No clubbing. No cyanosis. No edema. NEUROLOGICAL: Awake and alert. No obvious cranial nerve deficits. Motor grossly within normal limits. Normal speech. PSYCHIATRIC: Appropriate mood and affect; insight and judgment normal. Data Data Last Documented VS Vital Signs Date Time Temp Pulse Resp B/P (MAP) Pulse Ox O2 Delivery O2 Flow Rate FiO2 09/24/17 20:27 72 14 132/75 (94) 97 Room Air 09/24/17 16:42 98.8 Orders Orders Phenytoin (Dilantin) (09/24/17 18:32) Comprehensive Metabolic Panel (09/24/17 18:32) Complete Blood Count With Diff (09/24/17 18:32) Blood Glucose (09/24/17 18:32) Ecg Monitoring (09/24/17 18:32) Iv Access Insert/Monitor (09/24/17 18:32) Oximetry (09/24/17 18:32) Sodium Chloride 0.9% Flush (Ns Flush) (09/24/17 18:45) Electrocardiogram (09/24/17 ) Acetaminophen (Tylenol) (09/24/17 19:45) Phenytoin (Dilantin) (09/24/17 20:15) Ed Discharge Order (09/24/17 20:21) Labs Laboratory Tests Test 09/24/17 18:48 White Blood Count 16.2 TH/MM3 Red Blood Count 5.35 MIL/MM3 Hemoglobin 17.2 GM/DL Hematocrit 50.2 % Mean Corpuscular Volume 93.8 FL Mean Corpuscular Hemoglobin 32.1 PG Mean Corpuscular Hemoglobin Concent 34.2 % Red Cell Distribution Width 14.1 % Platelet Count 208 TH/MM3 Mean Platelet Volume 9.1 FL Neutrophils (%) (Auto) 87.4 % Lymphocytes (%) (Auto) 5.6 % Monocytes (%) (Auto) 6.9 % Eosinophils (%) (Auto) 0.0 % Basophils (%) (Auto) 0.1 % Neutrophils # (Auto) 14.1 TH/MM3 Lymphocytes # (Auto) 0.9 TH/MM3 Monocytes # (Auto) 1.1 TH/MM3 Eosinophils # (Auto) 0.0 TH/MM3 Basophils # (Auto) 0.0 TH/MM3 CBC Comment DIFF FINAL Differential Comment Blood Urea Nitrogen 16 MG/DL Creatinine 1.77 MG/DL Random Glucose 74 MG/DL Total Protein 9.9 GM/DL Albumin 5.0 GM/DL Calcium Level 9.8 MG/DL Alkaline Phosphatase 135 U/L Aspartate Amino Transf (AST/SGOT) 33 U/L Alanine Aminotransferase (ALT/SGPT) 43 U/L Total Bilirubin 0.5 MG/DL Sodium Level 136 MEQ/L Potassium Level 4.1 MEQ/L Chloride Level 100 MEQ/L Carbon Dioxide Level 26.9 MEQ/L Anion Gap 9 MEQ/L Estimat Glomerular Filtration Rate 54 ML/MIN Phenytoin (Dilantin) Level 7.0 MCG/ML [facility] Medical Decision Making Medical Screen Exam Complete: Yes Emergency Medical Condition: Yes Differential Diagnosis Subtherapeutic Dilantin level, seizure disorder, breakthrough seizure Narrative Course 32-year-old male with a history of seizures presents to emergency department with a seizure that occurred prior to arrival. Patient states it was about 3: 00p when he had the seizure and he woke up to the family looking over him. States that he was in bed at the time this occurred. Denies head trauma or neck pain. Patient states that he does have a headache located in left perianal region but this is normal after his seizures. States that his family drove him here. His stepfather was able to ride some of the history. States his seizures are "whole body" and are grand mal in nature. Patient states he had one seizure in August. He has not followed up with neurology in 1 month. He does not remember the name of several neurologists. Patient initially said that he was here at the emergency department this morning when and reality he was in his probation office. Patient states he does not remember this. His stepfather says he was "going through something". States that he was not having a seizure at the time of this event. States he does not know if he bit his tongue. Denies urinary incontinence. Denies fever, chills. Denies ingestions of medications or excessive use of alcohol. Vital signs stable. Laboratory Tests Test 09/24/17 18:48 White Blood Count 16.2 TH/MM3 Red Blood Count 5.35 MIL/MM3 Hemoglobin 17.2 GM/DL Hematocrit 50.2 % Mean Corpuscular Volume 93.8 FL Mean Corpuscular Hemoglobin 32.1 PG Mean Corpuscular Hemoglobin Concent 34.2 % Red Cell Distribution Width 14.1 % Platelet Count 208 TH/MM3 Mean Platelet Volume 9.1 FL Neutrophils (%) (Auto) 87.4 % Lymphocytes (%) (Auto) 5.6 % Monocytes (%) (Auto) 6.9 % Eosinophils (%) (Auto) 0.0 % Basophils (%) (Auto) 0.1 % Neutrophils # (Auto) 14.1 TH/MM3 Lymphocytes # (Auto) 0.9 TH/MM3 Monocytes # (Auto) 1.1 TH/MM3 Eosinophils # (Auto) 0.0 TH/MM3 Basophils # (Auto) 0.0 TH/MM3 CBC Comment DIFF FINAL Differential Comment Blood Urea Nitrogen 16 MG/DL Creatinine 1.77 MG/DL Random Glucose 74 MG/DL Total Protein 9.9 GM/DL Albumin 5.0 GM/DL Calcium Level 9.8 MG/DL Alkaline Phosphatase 135 U/L Aspartate Amino Transf (AST/SGOT) 33 U/L Alanine Aminotransferase (ALT/SGPT) 43 U/L Total Bilirubin 0.5 MG/DL Sodium Level 136 MEQ/L Potassium Level 4.1 MEQ/L Chloride Level 100 MEQ/L Carbon Dioxide Level 26.9 MEQ/L Anion Gap 9 MEQ/L Estimat Glomerular Filtration Rate 54 ML/MIN Phenytoin (Dilantin) Level 7.0 MCG/ML Dilantin level was low again. Mild leukocytosis which has been present with previous seizure episodes. I question the patient's compliance at this time. Previous notes reviewed and found the patient's compliance was poor. In addition to patient's history today , I do not suspect further process contributing to patient's seizure that occurred today. Patient states that his postictal period and symptoms are not outside the norm for him. I have reason to believe that there additional factors contribute to his seizure. Patient received Dilantin 200 mg emergency department today as part of his usual regimen. There was no seizure activity in the emergency department. Patient remained alert and oriented 3, neurovascularly intact. Patient does have support at home with his mother and stepfather. Patient is strongly advised to follow up with his neurologist as soon as possible. Follow up with primary care physician in 2-3 days. Diagnosis Primary Impression: Breakthrough seizure Additional Impression: Subtherapeutic serum dilantin level Referrals: Neurologist Primary Care Physician Additional Instructions: Take her medications as prescribed. Follow-up with neurologist this week. Follow up with your primary care physician within 2-3 days. Disposition: 01 DISCHARGE HOME Condition: Stable Briseida Gilliam Sep 24, 2017 19:01
[2017-09-24 19:05] VITALS: O2SAT 98
[2017-09-24 19:44] LABS: AUTOMATED NEUTROPHIL # 14.1 TH/MM3 (1.8-7.7); BASOPHIL % 0.1 % (0.0-2.0); HEMATOCRIT 50.2 % (39.0-51.0); HEMOGLOBIN 17.2 GM/DL (13.0-17.0); LYMPH % 5.6 % (9.0-44.0); LYMPHOCYTE # 0.9 TH/MM3 (1.0-4.8); MEAN CELL VOLUME 93.8 FL (80.0-100.0); MEAN CORPUSCULAR HEMOGLOBIN 32.1 PG (27.0-34.0); MEAN CORPUSCULAR HGB CONC 34.2 % (32.0-36.0); MEAN PLATELET VOLUME 9.1 FL (7.0-11.0); MONO % 6.9 % (0.0-8.0); MONOCYTE # 1.1 TH/MM3 (0-0.9); NEUT % 87.4 % (16.0-70.0); PLATELET COUNT 208 TH/MM3 (150-450); RED BLOOD COUNT 5.35 MIL/MM3 (4.50-5.90); RED CELL DISTRIBUTION WIDTH 14.1 % (11.6-17.2); WHITE BLOOD COUNT 16.2 TH/MM3 (4.0-11.0)
[2017-09-24] MEDS ORDERED: ACETAMINOPHEN 325 MG TAB PO ONE (19:45)
[2017-09-24 19:55] LABS: ALT (GPT) 43 U/L (12-78)
[2017-09-24 19:58] LABS: ALKALINE PHOSPHATASE 135 U/L (45-117); TOTAL BILIRUBIN ADULT 0.5 MG/DL (0.2-1.0); TOTAL PROTEIN 9.9 GM/DL (6.4-8.2)
[2017-09-24 20:07] LABS: AST (GOT) 33 U/L (15-37); BICARBONATE 26.9 MEQ/L (21.0-32.0); BLOOD UREA NITROGEN 16 MG/DL (7-18); CALCIUM 9.8 MG/DL (8.5-10.1); CHLORIDE 100 MEQ/L (98-107); CREATININE 1.77 MG/DL (0.60-1.30); GLOMERULAR FILTRATION RATE 54 ML/MIN (>89); GLUCOSE,RANDOM 74 MG/DL (74-106); SODIUM (NA) 136 MEQ/L (136-145)
[2017-09-24] MEDS ORDERED: PHENYTOIN SODIUM 100 MG CAP PO ONE (20:15)
[2017-09-24 20:27] VITALS: BP 132/75; PULSE 72; RESP 14; O2SAT 97
--- NOTE | 2017-09-25 10:18 | EKG ---
Date Performed: 09/24/2017 Time Performed: 19:34:13 PTAGE: 32 years EKG: Sinus rhythm NORMAL ECG NO PREVIOUS TRACING DOCTOR: Benjy Kelly Interpretating Date/Time 09/25/2017 10:17:12
== END 2017-09-24 20:35 | disposition home or self-care (01) ==
LOC: NEPC 16:39
DX: G40.909 Epilepsy, unspecified, not intractable, without status epilepticus (principal)
CPT/HCPCS: 80053; 80185; 85025; 93005

== ENCOUNTER 2017-09-28 18:13 | Emergency (ER) | payer SELFPAY ==
[~2017-09-28] VITALS: Ht 175.3 cm; Wt 82.0 kg
[2017-09-28 18:15] VITALS: BP 201/113; PULSE 122; RESP 18; TEMP 97.4; O2SAT 96
[2017-09-28 18:25] VITALS: BP 195/93; PULSE 115; RESP 18; O2SAT 100
[2017-09-28] MEDS ORDERED: DILA100C PO (18:29)
[2017-09-28] MEDS ORDERED: LORazepam 2 MG/ML VIAL IVS ONE (19:00)
[2017-09-28] MEDS ORDERED: SODIUM CHLORIDE 0.9% FLUSH 10 ML FLUSH IVF PRN (19:00)
[2017-09-28] MEDS ORDERED: PHENYTOIN INJ 1,000 MG in SODIUM CHLORIDE 0.9% INJ 100 ML IV ONE (19:00)
--- NOTE | 2017-09-28 19:02 | PD ---
HPI Chief Complaint: Seizure Time Seen by Provider: 18:52 Travel History International Travel<30 days: No Contact w/Intl Traveler<30days: No Traveled to known affect area: No History of Present Illness HPI 32-year-old male with history of seizure disorder, follow-up with neurologist Dr. Wei, presents because he is concerned that he may have a seizure. He reports that 1 hour prior to arrival he was smoking a black and mild when he began having shaking, dry mouth. He reports that these are the prodromal symptoms for his seizure disorder. Currently prescribed Dilantin, he reports that he has been compliant with his medication. He was here on September 24 for breakthrough seizure. Dilantin level subtherapeutic at 7 at that time. He denies any illicit drug use. He has no other complaints at this time. PFSH Past Medical History Hx Anticoagulant Therapy: No Arthritis: No Asthma: No Autoimmune Disease: No Blood Disorders: No Anxiety: No Depression: No Heart Rhythm Problems: No Cancer: No Cardiovascular Problems: No High Cholesterol: No Chemotherapy: No Chest Pain: No Congestive Heart Failure: No COPD: No Cerebrovascular Accident: No Diabetes: No Diminished Hearing: No Endocrine: No GERD: No Genitourinary: No Headaches: Yes Hiatal Hernia: No Immune Disorder: No Kidney Stones: No Musculoskeletal: No Neurologic: Yes Psychiatric: No Reproductive: No Respiratory: No Immunizations Current: No Migraines: No Radiation Therapy: No Renal Failure: No Seizures: Yes Sickle Cell Disease: No Sleep Apnea: No Thyroid Disease: No Ulcer: No Tetanus Vaccination: < 5 Years PNEUMOCCOCAL Vaccine (Year): 3 Past Surgical History Abdominal Surgery: No AICD: No Arteriovenous Shunt: No Cardiac Surgery: No Ear Surgery: No Endocrine Surgery: No Eye Surgery: No Genitourinary Surgery: No Gynecologic Surgery: No Hysterectomy: No Insulin Pump: No Joint Replacement: No Neurologic Surgery: Yes (BENIGN BRAIN TUMOR REMOVAL ) Oral Surgery: No Pacemaker: No Thoracic Surgery: No Other Surgery: Yes (R HAND) Social History Alcohol Use: Yes (SOCIALLY ) Tobacco Use: Yes Substance Use: Yes (MARIJUANA DAILY) Allergies-Medications (Allergen,Severity, Reaction): Coded Allergies: No Known Allergies (Verified Allergy, Unknown, 07/25/17) Reported Meds & Prescriptions Reported Meds & Active Scripts Active Reported Dilantin (Phenytoin Extended) 100 Mg Cap 200 Mg PO BID Review of Systems Except as stated in HPI: all other systems reviewed are Neg Physical Exam Narrative GENERAL: Well-nourished male in no acute distress, anxious SKIN: Warm and dry. HEAD: Atraumatic. Normocephalic. EYES: Pupils equal and round. No scleral icterus. No injection or drainage. ENT: No nasal bleeding or discharge. Mucous membranes pink and moist. NECK: Trachea midline. No JVD. CARDIOVASCULAR: Regular rate and rhythm. No murmur appreciated. RESPIRATORY: No accessory muscle use. Clear to auscultation. Breath sounds equal bilaterally. GASTROINTESTINAL: Abdomen soft, non-tender, nondistended. Hepatic and splenic margins not palpable. MUSCULOSKELETAL: No obvious deformities. No clubbing. No cyanosis. No edema. NEUROLOGICAL: Awake and alert. No obvious cranial nerve deficits. Motor grossly within normal limits. Normal speech. Tremulous. PSYCHIATRIC: Appropriate mood and affect; insight and judgment normal. Data Data Last Documented VS Vital Signs Date Time Temp Pulse Resp B/P (MAP) Pulse Ox O2 Delivery O2 Flow Rate FiO2 09/28/17 18:25 115 18 100 Room Air 09/28/17 18:25 195/93 (127) 09/28/17 18:15 97.4 Orders Orders Complete Blood Count With Diff (09/28/17 18:58) Basic Metabolic Panel (Bmp) (09/28/17 18:58) Phenytoin (Dilantin) (09/28/17 18:58) Drug Screen, Random Urine (09/28/17 18:58) Electrocardiogram (09/28/17 ) Blood Glucose (09/28/17 18:58) Ecg Monitoring (09/28/17 18:58) Iv Access Insert/Monitor (09/28/17 18:58) Oximetry (09/28/17 18:58) Sodium Chloride 0.9% Flush (Ns Flush) (09/28/17 19:00) Lorazepam Inj (Ativan Inj) (09/28/17 19:00) Phenytoin Inj (Dilantin Inj) (09/28/17 19:00) Potassium Chloride (Kcl) (09/28/17 20:00) Ed Discharge Order (09/28/17 20:22) Labs Laboratory Tests Test 09/28/17 19:12 White Blood Count 15.1 TH/MM3 Red Blood Count 4.63 MIL/MM3 Hemoglobin 15.1 GM/DL Hematocrit 43.8 % Mean Corpuscular Volume 94.6 FL Mean Corpuscular Hemoglobin 32.6 PG Mean Corpuscular Hemoglobin Concent 34.4 % Red Cell Distribution Width 14.1 % Platelet Count 239 TH/MM3 Mean Platelet Volume 9.7 FL Neutrophils (%) (Auto) 55.2 % Lymphocytes (%) (Auto) 35.4 % Monocytes (%) (Auto) 8.5 % Eosinophils (%) (Auto) 0.7 % Basophils (%) (Auto) 0.2 % Neutrophils # (Auto) 8.3 TH/MM3 Lymphocytes # (Auto) 5.3 TH/MM3 Monocytes # (Auto) 1.3 TH/MM3 Eosinophils # (Auto) 0.1 TH/MM3 Basophils # (Auto) 0.0 TH/MM3 CBC Comment AUTO DIFF Differential Total Cells Counted 100 Neutrophils % (Manual) 56 % Lymphocytes % 39 % Monocytes % 4 % Neutrophils # (Manual) 8.6 TH/MM3 Metamyelocytes 1 % Differential Comment FINAL DIFF MANUAL Blood Urea Nitrogen 13 MG/DL Creatinine 1.36 MG/DL Random Glucose 123 MG/DL Calcium Level 9.2 MG/DL Sodium Level 138 MEQ/L Potassium Level 3.2 MEQ/L Chloride Level 102 MEQ/L Carbon Dioxide Level 24.6 MEQ/L Anion Gap 11 MEQ/L Estimat Glomerular Filtration Rate 74 ML/MIN Phenytoin (Dilantin) Level 4.9 MCG/ML [facility] Medical Decision Making Medical Screen Exam Complete: Yes Emergency Medical Condition: Yes Medical Record Reviewed: Yes Differential Diagnosis Subtherapeutic INR, medication noncompliance, hypoglycemia Narrative Course Patient was placed on ECG monitoring pulse oximetry. Lab work, Dilantin level sent. The patient was given Dilantin bolus as well as 1 mg of Ativan. Laboratories been reviewed. The patient has leukocytosis which is improved from his most recent visit. His potassium is 3.2, oral potassium chloride administered. His Dilantin level was subtherapeutic at 4.9 which is decreased from his most recent visit suggesting that the patient has been noncompliant with his medication. The patient was strongly encouraged to take his medication as prescribed. He is stable for discharge. Diagnosis Primary Impression: Subtherapeutic serum dilantin level Additional Instructions: Follow-up with your neurologist. No driving/operating heavy machinery/climbing ladders for at least 6 months after your most recent seizure. Take your medications as they are prescribed. Return for any emergent medical conditions. Med/Other Pt SpecificInfo: No Change to Meds Disposition: 01 DISCHARGE HOME Condition: Stable Sukumar Kumar Sep 28, 2017 19:02
[2017-09-28 19:24] LABS: AUTOMATED NEUTROPHIL # 8.3 TH/MM3 (1.8-7.7); BASOPHIL % 0.2 % (0.0-2.0); EOSINOPHIL # 0.1 TH/MM3 (0-0.4); EOSINOPHIL % 0.7 % (0.0-4.0); HEMATOCRIT 43.8 % (39.0-51.0); HEMOGLOBIN 15.1 GM/DL (13.0-17.0); LYMPH % 35.4 % (9.0-44.0); LYMPHOCYTE # 5.3 TH/MM3 (1.0-4.8); MEAN CELL VOLUME 94.6 FL (80.0-100.0); MEAN CORPUSCULAR HEMOGLOBIN 32.6 PG (27.0-34.0); MEAN CORPUSCULAR HGB CONC 34.4 % (32.0-36.0); MEAN PLATELET VOLUME 9.7 FL (7.0-11.0); MONO % 8.5 % (0.0-8.0); MONOCYTE # 1.3 TH/MM3 (0-0.9); NEUT % 55.2 % (16.0-70.0); PLATELET COUNT 239 TH/MM3 (150-450); RED BLOOD COUNT 4.63 MIL/MM3 (4.50-5.90); RED CELL DISTRIBUTION WIDTH 14.1 % (11.6-17.2); WHITE BLOOD COUNT 15.1 TH/MM3 (4.0-11.0)
[2017-09-28 19:43] LABS: BICARBONATE 24.6 MEQ/L (21.0-32.0); CALCIUM 9.2 MG/DL (8.5-10.1); CREATININE 1.36 MG/DL (0.60-1.30); PHENYTOIN (DILANTIN) 4.9 MCG/ML (10.0-20.0)
[2017-09-28] MEDS ORDERED: POTASSIUM CHLORIDE 20 MEQ CONTROLLED RELEASE TAB PO ONE (20:00)
[2017-09-28 20:09] LABS: LYMPHOCYTES 39 % (9-44); METAMYELOCYTES 1 % (0-1); MONOCYTES 4 % (0-8); NEUTROPHIL # MANUAL DIFF 8.6 TH/MM3 (1.8-7.7); POLYS (SEG NEUTROPHILS) 56 % (16-70)
[2017-09-28 20:42] VITALS: BP 160/77; PULSE 82; RESP 16; O2SAT 100
[2017-09-28 21:15] VITALS: O2SAT 100
== END 2017-09-28 21:16 | disposition home or self-care (01) ==
LOC: NEPE 18:13
DX: G40.909 Epilepsy, unspecified, not intractable, without status epilepticus (principal); D72.829 Elevated white blood cell count, unspecified; Z72.0 Tobacco use
CPT/HCPCS: 80048; 80185; 85007; 85027; 99283; J1165; J2060

== ENCOUNTER 2017-09-30 14:03 | Emergency (ER) | payer SELFPAY ==
[~2017-09-30 14:03] MED LIST changes: -POTA1TAB4 PO
[2017-09-30 14:05] VITALS: BP 141/93; PULSE 79; RESP 14; TEMP 97.7; O2SAT 99
[2017-09-30] MEDS ORDERED: SODIUM CHLORIDE 0.9% FLUSH 10 ML FLUSH IVF PRN (18:00)
[2017-09-30 18:42] VITALS: BP 133/94; PULSE 71; RESP 18; O2SAT 99
[2017-09-30 18:57] LABS: AUTOMATED NEUTROPHIL # 4.5 TH/MM3 (1.8-7.7); BASOPHIL % 0.3 % (0.0-2.0); EOSINOPHIL # 0.1 TH/MM3 (0-0.4); EOSINOPHIL % 0.6 % (0.0-4.0); HEMATOCRIT 43.9 % (39.0-51.0); HEMOGLOBIN 14.9 GM/DL (13.0-17.0); LYMPH % 35.6 % (9.0-44.0); LYMPHOCYTE # 2.8 TH/MM3 (1.0-4.8); MEAN CELL VOLUME 95.6 FL (80.0-100.0); MEAN CORPUSCULAR HEMOGLOBIN 32.5 PG (27.0-34.0); MEAN PLATELET VOLUME 8.5 FL (7.0-11.0); MONO % 6.4 % (0.0-8.0); MONOCYTE # 0.5 TH/MM3 (0-0.9); NEUT % 57.1 % (16.0-70.0); PLATELET COUNT 217 TH/MM3 (150-450); RED CELL DISTRIBUTION WIDTH 13.9 % (11.6-17.2); WHITE BLOOD COUNT 7.9 TH/MM3 (4.0-11.0)
--- NOTE | 2017-09-30 19:06 | PD ---
HPI Chief Complaint: Seizure Time Seen by Provider: 17:34 Travel History International Travel<30 days: No Contact w/Intl Traveler<30days: No Traveled to known affect area: No History of Present Illness HPI 32-year-old male assessed emergency department for evaluation of having a breakthrough seizure. Patient states he was walking out of the court room when the seizure occurred. He denies falling or sustaining any injuries. He states he was surrounded by family that caught him and his cousin drove him to the emergency department. Patient takes Dilantin for his seizures. Dr. Wei his neurologist. He reports that he has been compliant with his medication however he has had multiple emergency department visits show some therapeutic levels of Dilantin. Patient was here 6 days ago when he was here 2 days ago for breakthrough seizures. He denies any illicit drug use. PFSH Past Medical History Hx Anticoagulant Therapy: No Arthritis: No Asthma: No Autoimmune Disease: No Blood Disorders: No Anxiety: No Depression: No Heart Rhythm Problems: No Cancer: No Cardiovascular Problems: No High Cholesterol: No Chemotherapy: No Chest Pain: No Congestive Heart Failure: No COPD: No Cerebrovascular Accident: No Diabetes: No Diminished Hearing: No Endocrine: No GERD: No Genitourinary: No Headaches: Yes Hiatal Hernia: No Immune Disorder: No Kidney Stones: No Musculoskeletal: No Neurologic: Yes Psychiatric: No Reproductive: No Respiratory: No Immunizations Current: No Migraines: No Radiation Therapy: No Renal Failure: No Seizures: Yes Sickle Cell Disease: No Sleep Apnea: No Thyroid Disease: No Ulcer: No PNEUMOCCOCAL Vaccine (Year): 3 Past Surgical History Abdominal Surgery: No AICD: No Arteriovenous Shunt: No Cardiac Surgery: No Ear Surgery: No Endocrine Surgery: No Eye Surgery: No Genitourinary Surgery: No Gynecologic Surgery: No Hysterectomy: No Insulin Pump: No Joint Replacement: No Neurologic Surgery: Yes (BENIGN BRAIN TUMOR REMOVAL ) Oral Surgery: No Pacemaker: No Thoracic Surgery: No Other Surgery: Yes (R HAND) Social History Alcohol Use: Yes (SOCIALLY ) Tobacco Use: Yes Substance Use: Yes (MARIJUANA DAILY) Allergies-Medications (Allergen,Severity, Reaction): Coded Allergies: No Known Allergies (Verified Allergy, Unknown, 07/25/17) Reported Meds & Prescriptions Reported Meds & Active Scripts Active Reported Dilantin (Phenytoin Extended) 100 Mg Cap 200 Mg PO BID Review of Systems Except as stated in HPI: all other systems reviewed are Neg Physical Exam Narrative GENERAL: Well-nourished, well-developed 32-year-old male patient in no acute distress. Nontoxic appearing. SKIN: Focused skin assessment warm/dry. HEAD: Normocephalic. Atraumatic. EYES: No scleral icterus. No injection or drainage. NECK: Supple, trachea midline. No JVD or lymphadenopathy. CARDIOVASCULAR: Regular rate and rhythm without murmurs, gallops, or rubs. RESPIRATORY: Breath sounds equal bilaterally. No accessory muscle use. GASTROINTESTINAL: Abdomen soft, non-tender, nondistended. MUSCULOSKELETAL: No cyanosis, or edema. BACK: Nontender without obvious deformity. No CVA tenderness. PSYCHIATRIC: No delusional thought processes. No hallucinations. Data Data Last Documented VS Vital Signs Date Time Temp Pulse Resp B/P (MAP) Pulse Ox O2 Delivery O2 Flow Rate FiO2 09/30/17 18:42 71 18 133/94 (107) 99 Room Air 09/30/17 14:05 97.7 Orders Orders Complete Blood Count With Diff (09/30/17 17:56) Phenytoin (Dilantin) (09/30/17 17:56) Electrocardiogram (09/30/17 ) Ecg Monitoring (09/30/17 17:56) Iv Access Insert/Monitor (09/30/17 17:56) Oximetry (09/30/17 17:56) Comprehensive Metabolic Panel (09/30/17 17:56) Sodium Chloride 0.9% Flush (Ns Flush) (09/30/17 18:00) Labs Laboratory Tests Test 09/30/17 18:29 White Blood Count 7.9 TH/MM3 Red Blood Count 4.60 MIL/MM3 Hemoglobin 14.9 GM/DL Hematocrit 43.9 % Mean Corpuscular Volume 95.6 FL Mean Corpuscular Hemoglobin 32.5 PG Mean Corpuscular Hemoglobin Concent 34.0 % Red Cell Distribution Width 13.9 % Platelet Count 217 TH/MM3 Mean Platelet Volume 8.5 FL Neutrophils (%) (Auto) 57.1 % Lymphocytes (%) (Auto) 35.6 % Monocytes (%) (Auto) 6.4 % Eosinophils (%) (Auto) 0.6 % Basophils (%) (Auto) 0.3 % Neutrophils # (Auto) 4.5 TH/MM3 Lymphocytes # (Auto) 2.8 TH/MM3 Monocytes # (Auto) 0.5 TH/MM3 Eosinophils # (Auto) 0.1 TH/MM3 Basophils # (Auto) 0.0 TH/MM3 CBC Comment DIFF FINAL Differential Comment MDM Medical Decision Making Medical Screen Exam Complete: Yes Emergency Medical Condition: Yes Differential Diagnosis Differential diagnoses include but not limited to breakthrough seizures, medication noncompliance, hypoglycemia Narrative Course Patient placed on monitor and IV obtained. Blood work sent to lab. CBC, CMP, Dilantin levels were ordered and pending. EKG ordered and interpreted. EKG shows sinus rhythm with first-degree AV block, heart rate 62. CBC shows no acute abnormality CMP and Dilantin levels are still pending. ALEXSANDER Alvarado is assuming care for this patient. Please see his documentation for further details and disposition. Doreen Bruce Sep 30, 2017 19:05
[2017-09-30 19:27] LABS: ALKALINE PHOSPHATASE 98 U/L (45-117); ALT (GPT) 41 U/L (12-78); BLOOD UREA NITROGEN 16 MG/DL (7-18); PHENYTOIN (DILANTIN) 7.3 MCG/ML (10.0-20.0); TOTAL BILIRUBIN ADULT 0.4 MG/DL (0.2-1.0); TOTAL PROTEIN 8.4 GM/DL (6.4-8.2)
[2017-09-30 19:29] LABS: ALBUMIN 3.8 GM/DL (3.4-5.0); AST (GOT) 40 U/L (15-37); BICARBONATE 28.1 MEQ/L (21.0-32.0); CHLORIDE 103 MEQ/L (98-107); CREATININE 1.22 MG/DL (0.60-1.30); GLOMERULAR FILTRATION RATE 83 ML/MIN (>89); GLUCOSE,RANDOM 81 MG/DL (74-106); SODIUM (NA) 137 MEQ/L (136-145)
--- NOTE | 2017-09-30 19:57 | PD ---
Physical Exam Date Seen by Provider: Sep 30, 2017 Time Seen by Provider: 19:54 Narrative GENERAL: This is a well-nourished, well-developed patient, in no apparent distress. SKIN: No rashes, ecchymoses or lesions. Warm and dry. HEAD: Atraumatic. Normocephalic. EYES: PERRL, EOMI, no discharge or injection. No scleral icterus. EARS: Clear NOSE: Nasal turbinates appear normal. THROAT: Mucosa pink and moist. Airway patent. NECK: Trachea midline. supple, moves head freely. LUNGS: Clear to auscultation. CV: Regular in rhythm. ABDOMEN: Soft nontender. EXT: No clubbing cyanosis or edema. Data Data Last Documented VS Vital Signs Date Time Temp Pulse Resp B/P (MAP) Pulse Ox O2 Delivery O2 Flow Rate FiO2 09/30/17 18:42 71 18 133/94 (107) 99 Room Air 09/30/17 14:05 97.7 Orders Orders Complete Blood Count With Diff (09/30/17 17:56) Phenytoin (Dilantin) (09/30/17 17:56) Electrocardiogram (09/30/17 ) Ecg Monitoring (09/30/17 17:56) Iv Access Insert/Monitor (09/30/17 17:56) Oximetry (09/30/17 17:56) Comprehensive Metabolic Panel (09/30/17 17:56) Sodium Chloride 0.9% Flush (Ns Flush) (09/30/17 18:00) Labs Laboratory Tests Test 09/30/17 18:29 White Blood Count 7.9 TH/MM3 Red Blood Count 4.60 MIL/MM3 Hemoglobin 14.9 GM/DL Hematocrit 43.9 % Mean Corpuscular Volume 95.6 FL Mean Corpuscular Hemoglobin 32.5 PG Mean Corpuscular Hemoglobin Concent 34.0 % Red Cell Distribution Width 13.9 % Platelet Count 217 TH/MM3 Mean Platelet Volume 8.5 FL Neutrophils (%) (Auto) 57.1 % Lymphocytes (%) (Auto) 35.6 % Monocytes (%) (Auto) 6.4 % Eosinophils (%) (Auto) 0.6 % Basophils (%) (Auto) 0.3 % Neutrophils # (Auto) 4.5 TH/MM3 Lymphocytes # (Auto) 2.8 TH/MM3 Monocytes # (Auto) 0.5 TH/MM3 Eosinophils # (Auto) 0.1 TH/MM3 Basophils # (Auto) 0.0 TH/MM3 CBC Comment DIFF FINAL Differential Comment Blood Urea Nitrogen 16 MG/DL Creatinine 1.22 MG/DL Random Glucose 81 MG/DL Total Protein 8.4 GM/DL Albumin 3.8 GM/DL Calcium Level 9.0 MG/DL Alkaline Phosphatase 98 U/L Aspartate Amino Transf (AST/SGOT) 40 U/L Alanine Aminotransferase (ALT/SGPT) 41 U/L Total Bilirubin 0.4 MG/DL Sodium Level 137 MEQ/L Potassium Level 5.3 MEQ/L Chloride Level 103 MEQ/L Carbon Dioxide Level 28.1 MEQ/L Anion Gap 6 MEQ/L Estimat Glomerular Filtration Rate 83 ML/MIN Phenytoin (Dilantin) Level 7.3 MCG/ML [facility] Medical Record Reviewed: Yes Supervised Visit with JEM: Yes Interpretation(s) Laboratory Tests Test 09/30/17 18:29 White Blood Count 7.9 TH/MM3 Red Blood Count 4.60 MIL/MM3 Hemoglobin 14.9 GM/DL Hematocrit 43.9 % Mean Corpuscular Volume 95.6 FL Mean Corpuscular Hemoglobin 32.5 PG Mean Corpuscular Hemoglobin Concent 34.0 % Red Cell Distribution Width 13.9 % Platelet Count 217 TH/MM3 Mean Platelet Volume 8.5 FL Neutrophils (%) (Auto) 57.1 % Lymphocytes (%) (Auto) 35.6 % Monocytes (%) (Auto) 6.4 % Eosinophils (%) (Auto) 0.6 % Basophils (%) (Auto) 0.3 % Neutrophils # (Auto) 4.5 TH/MM3 Lymphocytes # (Auto) 2.8 TH/MM3 Monocytes # (Auto) 0.5 TH/MM3 Eosinophils # (Auto) 0.1 TH/MM3 Basophils # (Auto) 0.0 TH/MM3 CBC Comment DIFF FINAL Differential Comment Blood Urea Nitrogen 16 MG/DL Creatinine 1.22 MG/DL Random Glucose 81 MG/DL Total Protein 8.4 GM/DL Albumin 3.8 GM/DL Calcium Level 9.0 MG/DL Alkaline Phosphatase 98 U/L Aspartate Amino Transf (AST/SGOT) 40 U/L Alanine Aminotransferase (ALT/SGPT) 41 U/L Total Bilirubin 0.4 MG/DL Sodium Level 137 MEQ/L Potassium Level 5.3 MEQ/L Chloride Level 103 MEQ/L Carbon Dioxide Level 28.1 MEQ/L Anion Gap 6 MEQ/L Estimat Glomerular Filtration Rate 83 ML/MIN Phenytoin (Dilantin) Level 7.3 MCG/ML Differential Diagnosis Differential diagnoses: Substance abuse, electrolyte abnormality, breakthrough seizure, subtherapeutic Dilantin Narrative Course Patient's here having a seizure earlier today. Patient's Dilantin and is still subtherapeutic from his last visit. The patient states that he was only taking 100 mg of Dilantin twice a day. He had increased his Dilantin to 200 mg twice a day last week. Patient was advised to take an additional 100 mg at bedtime and his regular 200 mg in the morning. Patient has a appointment with Dr. Wei his neurologist schedule for this Saturday. He was advised to have a repeat Dilantin. Patient is given 300 mg of Dilantin at discharge. Seizure disorder, breakthrough seizure, subtherapeutic Dilantin Diagnosis Primary Impression: Seizure disorder Additional Impressions: Breakthrough seizure Subtherapeutic serum dilantin level Patient Instructions: General Instructions Additional Instruction: Rest. No driving. Take 300 mg of Dilantin at night and 200 mg in the morning. This will be a [address] Wei. Have a repeat Dilantin before your appointment on Saturday. Return to the ER if any problems. Disposition: 01 DISCHARGE HOME Condition: Stable Brandon Cohen Sep 30, 2017 19:57
[2017-09-30] MEDS ORDERED: PHENYTOIN SODIUM 100 MG CAP PO ONE (20:00)
[2017-09-30 20:45] VITALS: BP 132/84
--- NOTE | 2017-10-01 15:30 | EKG ---
Date Performed: 09/30/2017 Time Performed: 18:09:05 PTAGE: 32 years EKG: Sinus rhythm WITH FIRST DEGREE AV BLOCK BORDERLINE RIGHT AXIS DEVIATION ABNORMAL ECG PREVIOUS TRACING 09/24/17 @19.34 Compared to prior tracing no significant change DOCTOR: Fabio Tam Interpretating Date/Time 10/01/2017 15:30:18
== END 2017-09-30 21:00 | disposition home or self-care (01) ==
LOC: NEPD 14:03
DX: G40.909 Epilepsy, unspecified, not intractable, without status epilepticus (principal); I44.0 Atrioventricular block, first degree; R94.31 Abnormal electrocardiogram [ECG] [EKG]; Z72.0 Tobacco use
CPT/HCPCS: 80053; 80185; 85025; 93005; 99284

== ENCOUNTER 2017-11-23 16:21 | Emergency (ER) | payer SELFPAY ==
[~2017-11-23] VITALS: Ht 182.9 cm; Wt 86.0 kg
[2017-11-23 16:29] VITALS: BP 128/74; PULSE 85; RESP 18; TEMP 98.2; O2SAT 99
[2017-11-23] MEDS ORDERED: SODIUM CHLORIDE 0.9% FLUSH 10 ML FLUSH IVF PRN (16:30)
[2017-11-23 16:33] VITALS: BP 128/74; PULSE 75; RESP 18; TEMP 98.2; O2SAT 99
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
[2017-11-23 16:34] VITALS: BP 128/74; PULSE 83; RESP 18; TEMP 98.2; O2SAT 99
[2017-11-23 17:07] LABS: AUTOMATED NEUTROPHIL # 5.3 TH/MM3 (1.8-7.7); BASOPHIL % 0.4 % (0.0-2.0); EOSINOPHIL # 0.1 TH/MM3 (0-0.4); HEMATOCRIT 45.9 % (39.0-51.0); HEMOGLOBIN 15.5 GM/DL (13.0-17.0); LYMPH % 34.8 % (9.0-44.0); LYMPHOCYTE # 3.2 TH/MM3 (1.0-4.8); MEAN CELL VOLUME 95.8 FL (80.0-100.0); MEAN CORPUSCULAR HEMOGLOBIN 32.4 PG (27.0-34.0); MEAN CORPUSCULAR HGB CONC 33.8 % (32.0-36.0); MEAN PLATELET VOLUME 8.3 FL (7.0-11.0); MONO % 6.2 % (0.0-8.0); MONOCYTE # 0.6 TH/MM3 (0-0.9); NEUT % 57.6 % (16.0-70.0); PLATELET COUNT 226 TH/MM3 (150-450); RED BLOOD COUNT 4.79 MIL/MM3 (4.50-5.90); RED CELL DISTRIBUTION WIDTH 14.8 % (11.6-17.2); WHITE BLOOD COUNT 9.2 TH/MM3 (4.0-11.0)
[2017-11-23 17:27] LABS: ALBUMIN 4.1 GM/DL (3.4-5.0); AST (GOT) 16 U/L (15-37); BICARBONATE 18.6 MEQ/L (21.0-32.0); BLOOD UREA NITROGEN 16 MG/DL (7-18); CALCIUM 9.1 MG/DL (8.5-10.1); CHLORIDE 105 MEQ/L (98-107); CREATININE 1.68 MG/DL (0.60-1.30); GLOMERULAR FILTRATION RATE 58 ML/MIN (>89); GLUCOSE,RANDOM 84 MG/DL (74-106); SODIUM (NA) 141 MEQ/L (136-145)
[2017-11-23 17:28] LABS: ALT (GPT) 23 U/L (12-78)
[2017-11-23 17:30] LABS: ALKALINE PHOSPHATASE 99 U/L (45-117); TOTAL BILIRUBIN ADULT 0.3 MG/DL (0.2-1.0); TOTAL PROTEIN 7.7 GM/DL (6.4-8.2)
[2017-11-23] MEDS ORDERED: PHENYTOIN INJ 1,000 MG in SODIUM CHLORIDE 0.9% INJ 100 ML IV ONE (17:45)
[2017-11-23] MEDS ORDERED: DILA100C PO (17:57)
[2017-11-23 18:35] VITALS: BP 133/79
== END 2017-11-23 18:36 | disposition home or self-care (01) ==
LOC: NEPC 16:21
DX: R56.9 Unspecified convulsions (principal); Z79.899 Other long term (current) drug therapy
CPT/HCPCS: 80053; 80185; 80307; 85025; 96365; 99284; J1165

== ENCOUNTER 2017-12-05 06:17 | Observation (INO) | payer SELFPAY ==
[~2017-12-05] VITALS: Ht 182.9 cm; Wt 91.0 kg
[2017-12-05 06:19] VITALS: PULSE 84; RESP 15; TEMP 98; O2SAT 98
[2017-12-05] MEDS ORDERED: SODIUM CHLOR 0.9% 1000 ML INJ 1,000 ML IV ONE (06:35)
--- NOTE | 2017-12-05 06:44 | PD ---
HPI Chief Complaint: Seizure Time Seen by Provider: 06:35 Travel History International Travel<30 days: No Contact w/Intl Traveler<30days: No Traveled to known affect area: No History of Present Illness HPI 32-year-old male arrives to the ER by EMS. He is reported to have seized much earlier in the evening and EMS was called and he refused. He again seized and EMS this time transported the patient to the ER. He is reported to be postictal. In the ER he reports strict compliance with Dilantin. He states last seizure was about 2 weeks ago or 3 weeks ago. He notes seizures tend to occur more frequently with change in weather as has been. PFSH Past Medical History Hx Anticoagulant Therapy: No Arthritis: No Asthma: No Autoimmune Disease: No Blood Disorders: No Anxiety: No Depression: No Heart Rhythm Problems: No Cancer: No Cardiovascular Problems: No High Cholesterol: No Chemotherapy: No Chest Pain: No Congestive Heart Failure: No COPD: No Cerebrovascular Accident: No Diabetes: No Diminished Hearing: No Endocrine: No GERD: No Genitourinary: No Headaches: Yes Hiatal Hernia: No Immune Disorder: No Kidney Stones: No Musculoskeletal: No Neurologic: Yes Psychiatric: No Reproductive: No Respiratory: No Immunizations Current: No Migraines: No Radiation Therapy: No Renal Failure: No Seizures: Yes Sickle Cell Disease: No Sleep Apnea: No Thyroid Disease: No Ulcer: No PNEUMOCCOCAL Vaccine (Year): 3 Past Surgical History Abdominal Surgery: No AICD: No Arteriovenous Shunt: No Cardiac Surgery: No Ear Surgery: No Endocrine Surgery: No Eye Surgery: No Genitourinary Surgery: No Gynecologic Surgery: No Hysterectomy: No Insulin Pump: No Joint Replacement: No Neurologic Surgery: Yes (BENIGN BRAIN TUMOR REMOVAL ) Oral Surgery: No Pacemaker: No Thoracic Surgery: No Other Surgery: Yes (R HAND) Social History Alcohol Use: Yes (SOCIALLY ) Tobacco Use: No Substance Use: No (MARIJUANA PRIOR PER PT) Allergies-Medications (Allergen,Severity, Reaction): Coded Allergies: No Known Allergies (Verified Allergy, Unknown, 12/05/17) Reported Meds & Prescriptions Reported Meds & Active Scripts Active Dilantin (Phenytoin Extended) 100 Mg Cap 200 Mg PO BID 30 Days Review of Systems Except as stated in HPI: all other systems reviewed are Neg General / Constitutional: No: Fever Physical Exam Narrative GENERAL: 32-year-old male pleasant well-nourished well-developed SKIN: Warm and dry. HEAD: Atraumatic. Normocephalic. EYES: Pupils equal and round. No scleral icterus. No injection or drainage. ENT: No nasal bleeding or discharge. Mucous membranes pink and moist. NECK: Trachea midline. No JVD. CARDIOVASCULAR: Regular rate and rhythm. RESPIRATORY: No accessory muscle use. Clear to auscultation. Breath sounds equal bilaterally. GASTROINTESTINAL: Abdomen soft, non-tender, nondistended. Hepatic and splenic margins not palpable. MUSCULOSKELETAL: Extremities without clubbing, cyanosis, or edema. No obvious deformities. NEUROLOGICAL: Awake and alert. No obvious cranial nerve deficits. Motor grossly within normal limits. Five out of 5 muscle strength in the arms and legs. Normal speech. PSYCHIATRIC: Appropriate mood and affect; insight and judgment normal. Data Data Last Documented VS Vital Signs Date Time Temp Pulse Resp B/P (MAP) Pulse Ox O2 Delivery O2 Flow Rate FiO2 12/05/17 06:25 15 98 Room Air 12/05/17 06:19 98.0 84 Orders Orders Complete Blood Count With Diff (12/05/17 06:35) Alcohol (Ethanol) (12/05/17 06:35) Phenytoin (Dilantin) (12/05/17 06:35) Drug Screen, Random Urine (12/05/17 06:35) Blood Glucose (12/05/17 06:35) Ecg Monitoring (12/05/17 06:35) Iv Access Insert/Monitor (12/05/17 06:35) Oximetry (12/05/17 06:35) Comprehensive Metabolic Panel (12/05/17 06:35) Sodium Chlor 0.9% 1000 Ml Inj (Ns 1000 M (12/05/17 06:35) Sodium Chloride 0.9% Flush (Ns Flush) (12/05/17 06:45) MDM Medical Decision Making Medical Screen Exam Complete: Yes Emergency Medical Condition: Yes Medical Record Reviewed: Yes Differential Diagnosis Seizure, subtherapeutic Dilantin, electrolyte imbalance Narrative Course Case discussed with oncoming physician to follow-up blood work and disposition appropriately. David Quinonez MD Dec 05, 2017 06:44
[2017-12-05] MEDS ORDERED: SODIUM CHLORIDE 0.9% FLUSH 10 ML FLUSH IVF PRN (06:45)
[2017-12-05 07:46] LABS: TOTAL BILIRUBIN ADULT 0.1 MG/DL (0.2-1.0)
[2017-12-05 08:27] LABS: AUTOMATED NEUTROPHIL # 6.9 TH/MM3 (1.8-7.7); BASOPHIL % 0.4 % (0.0-2.0); EOSINOPHIL # 0.2 TH/MM3 (0-0.4); HEMATOCRIT 42.1 % (39.0-51.0); HEMOGLOBIN 14.5 GM/DL (13.0-17.0); LYMPH % 18.8 % (9.0-44.0); LYMPHOCYTE # 1.8 TH/MM3 (1.0-4.8); MEAN CORPUSCULAR HGB CONC 34.4 % (32.0-36.0); MEAN PLATELET VOLUME 8.2 FL (7.0-11.0); MONO % 7.3 % (0.0-8.0); MONOCYTE # 0.7 TH/MM3 (0-0.9); NEUT % 71.5 % (16.0-70.0); PLATELET COUNT 206 TH/MM3 (150-450); RED BLOOD COUNT 4.53 MIL/MM3 (4.50-5.90); RED CELL DISTRIBUTION WIDTH 14.6 % (11.6-17.2); WHITE BLOOD COUNT 9.7 TH/MM3 (4.0-11.0)
[2017-12-05 08:38] LABS: ALBUMIN 3.8 GM/DL (3.4-5.0); ALT (GPT) 49 U/L (12-78); AST (GOT) 36 U/L (15-37); BLOOD UREA NITROGEN 25 MG/DL (7-18); CALCIUM 8.5 MG/DL (8.5-10.1); CHLORIDE 108 MEQ/L (98-107); CREATININE 1.36 MG/DL (0.60-1.30); GLOMERULAR FILTRATION RATE 74 ML/MIN (>89); GLUCOSE,RANDOM 93 MG/DL (74-106); SODIUM (NA) 141 MEQ/L (136-145)
[2017-12-05 08:41] LABS: TOTAL PROTEIN 7.4 GM/DL (6.4-8.2)
[2017-12-05 08:53] LABS: ALKALINE PHOSPHATASE 94 U/L (45-117); PHENYTOIN (DILANTIN) 2.1 MCG/ML (10.0-20.0)
[2017-12-05] MEDS ORDERED: LORazepam 2 MG/ML VIAL ONE (09:38)
[2017-12-05 09:45] VITALS: BP 139/64; PULSE 105; RESP 25; O2SAT 95
[2017-12-05] MEDS ORDERED: LORazepam 2 MG/ML VIAL IV PUSH ONE (09:45)
[2017-12-05] MEDS ORDERED: PHENYTOIN INJ 1,000 MG in SODIUM CHLORIDE 0.9% INJ 100 ML IV ONE (09:45)
--- NOTE | 2017-12-05 10:02 | PD ---
Physical Exam Date Seen by Provider: Dec 05, 2017 Time Seen by Provider: 07:00 Narrative Patient initially seen and evaluated by Dr. Quinonez, he was awaiting lab work, had 2 seizures already today. Was planning to be released after the lab work comes back. However, the patient had an additional seizure in the ER and at this point has had 3 seizures today. His Dilantin level is low even though he states he is compliant with medications. He was given a Dilantin loading dose as well. At this point, case is discussed with for observation admission for multiple seizures. Patient had reported earlier that he has had increase in episodes recently. Laboratory Tests Test 12/05/17 08:05 Neutrophils (%) (Auto) 71.5 % (16.0-70.0) Blood Urea Nitrogen 25 MG/DL (7-18) Creatinine 1.36 MG/DL (0.60-1.30) Total Bilirubin 0.1 MG/DL (0.2-1.0) Chloride Level 108 MEQ/L (98-107) Estimat Glomerular Filtration Rate 74 ML/MIN (>89) Phenytoin (Dilantin) Level 2.1 MCG/ML (10.0-20.0) Data Data Last Documented VS Vital Signs Date Time Temp Pulse Resp B/P (MAP) Pulse Ox O2 Delivery O2 Flow Rate FiO2 12/05/17 09:45 105 25 139/64 (89) 95 Nasal Cannula 2.00 12/05/17 06:19 98.0 Orders Orders Complete Blood Count With Diff (12/05/17 06:35) Alcohol (Ethanol) (12/05/17 06:35) Phenytoin (Dilantin) (12/05/17 06:35) Drug Screen, Random Urine (12/05/17 06:35) Blood Glucose (12/05/17 06:35) Ecg Monitoring (12/05/17 06:35) Iv Access Insert/Monitor (12/05/17 06:35) Oximetry (12/05/17 06:35) Comprehensive Metabolic Panel (12/05/17 06:35) Sodium Chlor 0.9% 1000 Ml Inj (Ns 1000 M (12/05/17 06:35) Sodium Chloride 0.9% Flush (Ns Flush) (12/05/17 06:45) Lorazepam Inj (Ativan Inj) (12/05/17 09:45) Phenytoin Inj (Dilantin Inj) (12/05/17 09:45) Lorazepam Inj (Ativan Inj) (12/05/17 09:38) Admit Order (Ed Use Only) (12/05/17 10:00) Labs Laboratory Tests Test 12/05/17 08:05 White Blood Count 9.7 TH/MM3 Red Blood Count 4.53 MIL/MM3 Hemoglobin 14.5 GM/DL Hematocrit 42.1 % Mean Corpuscular Volume 93.0 FL Mean Corpuscular Hemoglobin 32.0 PG Mean Corpuscular Hemoglobin Concent 34.4 % Red Cell Distribution Width 14.6 % Platelet Count 206 TH/MM3 Mean Platelet Volume 8.2 FL Neutrophils (%) (Auto) 71.5 % Lymphocytes (%) (Auto) 18.8 % Monocytes (%) (Auto) 7.3 % Eosinophils (%) (Auto) 2.0 % Basophils (%) (Auto) 0.4 % Neutrophils # (Auto) 6.9 TH/MM3 Lymphocytes # (Auto) 1.8 TH/MM3 Monocytes # (Auto) 0.7 TH/MM3 Eosinophils # (Auto) 0.2 TH/MM3 Basophils # (Auto) 0.0 TH/MM3 CBC Comment AUTO DIFF Differential Comment AUTO DIFF CONFIRMED Blood Urea Nitrogen 25 MG/DL Creatinine 1.36 MG/DL Random Glucose 93 MG/DL Total Protein 7.4 GM/DL Albumin 3.8 GM/DL Calcium Level 8.5 MG/DL Alkaline Phosphatase 94 U/L Aspartate Amino Transf (AST/SGOT) 36 U/L Alanine Aminotransferase (ALT/SGPT) 49 U/L Total Bilirubin 0.1 MG/DL Sodium Level 141 MEQ/L Potassium Level 4.1 MEQ/L Chloride Level 108 MEQ/L Carbon Dioxide Level 25.0 MEQ/L Anion Gap 8 MEQ/L Estimat Glomerular Filtration Rate 74 ML/MIN Phenytoin (Dilantin) Level 2.1 MCG/ML Ethyl Alcohol Level LESS THAN 3 MG/DL [facility] [place] Medical Record Reviewed: Yes Supervised Visit with JEM: No Diagnosis Primary Impression: Subtherapeutic serum dilantin level Additional Impression: Seizure Admitting Information Admitting Physician Requests: Admit Toni Quintana MD Dec 05, 2017 10:02
[2017-12-05] MEDS ORDERED: SODIUM CHLORIDE 0.9% FLUSH 10 ML FLUSH IV FLUSH PRN (10:15)
[2017-12-05 11:46] VITALS: BP 100/57; PULSE 83; RESP 18; O2SAT 98
--- NOTE | 2017-12-05 12:25 | HHI.HP ---
[facility] Primary [facility] Physician No Primary Care Physician Admission Diagnosis Multiple seizures Diagnoses: Chief Complaint: Seizures Travel History International Travel<30 Days: No Contact w/Intl Traveler <30 Da: No Traveled to Known Affected Are: No History of Present Illness 32-year-old male with a medical history significant for seizure disorder, history of brain tumor resection. Patient has multiple presentation to the hospital for breakthrough seizures. He presented today again after having had 2 seizures reportedly at home. After the first the first seizure, he refused help from EMS. He had a third seizure while in the emergency room. Patient was given Ativan by the time of my evaluation. He is very somnolent and unable to contribute much to the history. Per ER physician records, he reports compliance with taking Dilantin. However his Dilantin level was noted to be low. Most of the history obtained from the medical record given the patient's current mental status from Ativan. Review of Systems ROS Limitations: Clinical Condition Past Family Social History Past Medical History Seizure disorder History of ganglioglioma involving the left parietal lobe. Past Surgical History Resection of left parietal lobe Right fourth digit surgery Reported Medications Reported Meds & Active Scripts Active Dilantin (Phenytoin Extended) 100 Mg Cap 200 Mg PO BID 30 Days Allergies: Coded Allergies: No Known Allergies (Verified Allergy, Unknown, 12/05/17) Family History Unable to obtain due to the patient's current condition Social History Unable to obtain Physical Exam Vital Signs Vital Signs Date Time Temp Pulse Resp B/P (MAP) Pulse Ox O2 Delivery O2 Flow Rate FiO2 12/05/17 11:56 95 12/05/17 11:46 83 18 100/57 (71) 98 Nasal Cannula 12/05/17 09:45 105 25 139/64 (89) 95 Nasal Cannula 2.00 12/05/17 06:25 15 98 Room Air 12/05/17 06:19 98.0 84 15 98 Physical Exam GENERAL: Patient is very somnolent and unable to hold a conversation currently. SKIN: No rashes, ecchymoses or lesions. Cool and dry. HEAD: Left parietal area with old scar. No temporal or scalp tenderness. EYES: Pupils equal round and reactive. NECK: Trachea midline. No JVD or lymphadenopathy. Supple, nontender, no meningeal signs. CARDIOVASCULAR: Regular rate and rhythm without murmurs, gallops, or rubs. RESPIRATORY: Clear to auscultation. Breath sounds equal bilaterally. No wheezes , rales, or rhonchi. GASTROINTESTINAL: Abdomen soft, non-tender, nondistended. MUSCULOSKELETAL: Extremities without clubbing, cyanosis, or edema. NEUROLOGICAL: Limited. Patient very somnolent and unable to participate. He just received Ativan. Laboratory Laboratory Tests Test 12/05/17 08:05 White Blood Count 9.7 Red Blood Count 4.53 Hemoglobin 14.5 Hematocrit 42.1 Mean Corpuscular Volume 93.0 Mean Corpuscular Hemoglobin 32.0 Mean Corpuscular Hemoglobin Concent 34.4 Red Cell Distribution Width 14.6 Platelet Count 206 Mean Platelet Volume 8.2 Neutrophils (%) (Auto) 71.5 Lymphocytes (%) (Auto) 18.8 Monocytes (%) (Auto) 7.3 Eosinophils (%) (Auto) 2.0 Basophils (%) (Auto) 0.4 Neutrophils # (Auto) 6.9 Lymphocytes # (Auto) 1.8 Monocytes # (Auto) 0.7 Eosinophils # (Auto) 0.2 Basophils # (Auto) 0.0 CBC Comment AUTO DIFF Differential Comment AUTO DIFF CONFIRMED Blood Urea Nitrogen 25 Creatinine 1.36 Random Glucose 93 Total Protein 7.4 Albumin 3.8 Calcium Level 8.5 Alkaline Phosphatase 94 Aspartate Amino Transf (AST/SGOT) 36 Alanine Aminotransferase (ALT/SGPT) 49 Total Bilirubin 0.1 Sodium Level 141 Potassium Level 4.1 Chloride Level 108 Carbon Dioxide Level 25.0 Anion Gap 8 Estimat Glomerular Filtration Rate 74 Phenytoin (Dilantin) Level 2.1 Ethyl Alcohol Level LESS THAN 3 Result Diagram: 12/05/1780412/05/17804 Caprini VTE Risk Assessment Caprini VTE Risk Assessment: No/Low Risk (score <= 1) Caprini Risk Assessment Model Point Value = 1 Point Value = 2 Point Value = 3 Point Value = 5 Age 41-60 Minor surgery BMI > 25 kg/m2 Swollen legs Varicose veins or History of unexplained or recurrent spontaneous Oral contraceptives or hormone replacement Sepsis (< 1 month) Serious lung disease, including pneumonia (< 1 month) Abnormal pulmonary function Acute myocardial infarction Congestive heart failure (< 1 month) History of inflammatory bowel disease Medical patient at bed rest Age 61-74 Arthroscopic surgery Major open surgery (> 45 min) Laparoscopic surgery (> 45 min) Malignancy Confined to bed (> 72 hours) Immobilizing plaster cast Central venous access Age >= 75 History of VTE Family history of VTE Factor V Leiden Prothrombin [id number] Lupus anticoagulant Anticardiolipin antibodies Elevated serum homocysteine Heparin-induced thrombocytopenia Other congenital or acquired thrombophilia Stroke (< 1 month) Elective arthroplasty Hip, pelvis, or leg fracture Acute spinal cord injury (< 1 month) Prophylaxis Regimen Total Risk Factor Score Risk Level Prophylaxis Regimen 0-1 Low Early ambulation 2 Moderate Order ONE of the following: *Sequential Compression Device (SCD) *Heparin 5000 units SQ BID 3-4 Higher Order ONE of the following medications: *Heparin 5000 units SQ TID *Enoxaparin/Lovenox 40 mg SQ daily (WT < 150 kg, CrCl > 30 mL/min) *Enoxaparin/Lovenox 30 mg SQ daily (WT < 150 kg, CrCl > 10-29 mL/min) *Enoxaparin/Lovenox 30 mg SQ BID (WT < 150 kg, CrCl > 30 mL/min) AND/OR *Sequential Compression Device (SCD) 5 or more Highest Order ONE of the following medications: *Heparin 5000 units SQ TID (Preferred with Epidurals) *Enoxaparin/Lovenox 40 mg SQ daily (WT < 150 kg, CrCl > 30 mL/min) *Enoxaparin/Lovenox 30 mg SQ daily (WT < 150 kg, CrCl > 10-29 mL/min) *Enoxaparin/Lovenox 30 mg SQ BID (WT < 150 kg, CrCl > 30 mL/min) AND *Sequential Compression Device (SCD) Assessment and Plan Problem List: (1) Breakthrough seizure ICD Code: G40.919 - Epilepsy, unspecified, intractable, without status epilepticus Status: Acute (2) Subtherapeutic serum dilantin level ICD Code: R78.89 - Finding of other specified substances, not normally found in blood Status: Acute Assessment and Plan 32-year-old male with history of seizures admitted with breakthrough seizure. Suspect secondary to noncompliance. However he had 3 seizures within the past 24 hours. Patient will be admitted for observation with neurology consultation. -Patient loaded with Dilantin in the ED. Continue home dose Dilantin - Seizure precautions - Consult neurology. - Supportive care with IV fluid. - Check urine drug screen and alcohol level. Discussed Condition With Serge Burleson MD Dec 05, 2017 12:25
[2017-12-05 12:35] VITALS: BP 118/73; PULSE 71; RESP 20; TEMP 97.5; O2SAT 98
[2017-12-05 15:47] VITALS: BP 91/50; PULSE 79; RESP 20; TEMP 98.7; O2SAT 96
--- NOTE | 2017-12-05 17:56 | MB ---
cc: Foreign Adams MD DATE OF CONSULT: 12/05/2017 HISTORY OF PRESENT ILLNESS: He is 32 years old, seen in neurological consultation. The patient had a total of 3 seizures today. The third one was in the emergency room. The patient denied alcohol use, but his history is not reliable. He was still somnolent when I saw him about 2 hours ago. He says he takes Dilantin regularly, 200 mg twice a day, but his level was 2.1. He admits having had a history of seizures since 2010 when he was diagnosed with a benign brain tumor and treated with surgery on the left side. He describes that he follows with Dr. Wei for neurological care. NEUROLOGIC EXAMINATION: Examination showed the patient to be somnolent, somewhat lethargic and he was apparently wanting to go home. He was walking in the room without any hemiparesis. He became somewhat cooperative for the exam. The exam is nonfocal. Ocular movements are full, visual yarbrough full. The eyes appear to be somewhat injected. Reflexes 1-2+ throughout and plantar responses flexor. There is left frontal scar tissue from previous craniectomy. LABORATORY DATA: The CBC is normal. Chemistry with BUN being 25, creatinine 1.36, glucose 93. Sodium and potassium normal. ALT and AST normal. Alcohol level was less than 3 and Dilantin level 2.1. IMAGING STUDIES: I see some imaging studies on him. CT brain from 08/2017 indicates no acute disease, MRI brain only done in 2010 indicating postoperative change of left frontoparietal craniotomy. ASSESSMENT AND PLAN: Seizure recurrence. History of left frontal benign brain tumor treated in 2010, presumably a meningioma. Subtherapeutic Dilantin, though he describes compliance but doubt this. I am going to request an MRI brain. He was given Dilantin 1 gram IV and to continue with Dilantin 200 mg twice a day. Monitor for alcohol withdrawal syndrome. Hydration and general medical care. Thank you for asking us to assist in his care. We will also obtain an EEG. Foreign Adams MD OFC/KD , 05:36 PM , 05:55 PM
[2017-12-05] MEDS: PHENYTOIN SODIUM 100 MG CAP PO SCH (22:27)
[2017-12-05] MEDS: SODIUM CHLORIDE 0.9% FLUSH 10 ML FLUSH IV FLUSH SCH (22:28)
[2017-12-05] MEDS: D5-1/2 NS + KCL 10 MEQ INJ 1,000 ML IV SCH (22:28)
[2017-12-06 04:07] VITALS: BP 125/70; PULSE 61; RESP 18; TEMP 97.8; O2SAT 97
[2017-12-06] MEDS: PHENYTOIN SODIUM 100 MG CAP PO SCH (07:53)
[2017-12-06] MEDS: D5-1/2 NS + KCL 10 MEQ INJ 1,000 ML IV SCH (07:53)
[2017-12-06] MEDS: SODIUM CHLORIDE 0.9% FLUSH 10 ML FLUSH IV FLUSH SCH (07:53)
[2017-12-06 08:24] VITALS: BP 113/70; PULSE 65; RESP 18; TEMP 98.6; O2SAT 99
[2017-12-06 11:28] LABS: BICARBONATE 24.1 MEQ/L (21.0-32.0); CALCIUM 8.2 MG/DL (8.5-10.1); CREATININE 1.32 MG/DL (0.60-1.30)
[2017-12-06 12:47] VITALS: BP 118/72; PULSE 77; RESP 20; TEMP 98; O2SAT 99
--- NOTE | 2017-12-06 13:07 | HHI.DCPOC ---
Discharge Care Plan Diagnosis: (1) Breakthrough seizure (2) Subtherapeutic serum dilantin level Additional Problems Seizure Compliance with medications Goals to Promote Your Health * To prevent worsening of your condition and complications * To maintain your health at the optimal level Directions to Meet Your Goals Take your medications as prescribed Follow your dietary instruction Follow activity as directed Keep your appointments as scheduled Take your immunizations and boosters as scheduled If your symptoms worsen call your PCP, if no PCP go to Urgent Care Center or Emergency Room Smoking is Dangerous to Your Health. Avoid second hand smoke Call the 24-hour hour crisis hotline for domestic abuse at Ceasar Ulrich Dec 06, 2017 13:07
--- NOTE | 2017-12-06 13:31 | HHI.DS ---
Discharge Summary Admission Date Dec 05, 2017 at 10:01 Discharge Date: Dec 06, 2017 Admitting Diagnosis Multiple seizures (1) Breakthrough seizure ICD Code: G40.919 - Epilepsy, unspecified, intractable, without status epilepticus Status: Acute (2) Subtherapeutic serum dilantin level ICD Code: R78.89 - Finding of other specified substances, not normally found in blood Status: Acute Procedures none Brief History - From Admission 32-year-old male with a medical history significant for seizure disorder, history of brain tumor resection. Patient has multiple presentation to the hospital for breakthrough seizures. He presented today again after having had 2 seizures reportedly at home. After the first the first seizure, he refused help from EMS. He had a third seizure while in the emergency room. Patient was given Ativan by the time of my evaluation. He is very somnolent and unable to contribute much to the history. Per ER physician records, he reports compliance with taking Dilantin. However his Dilantin level was noted to be low. Most of the history obtained from the medical record given the patient's current mental status from Ativan. CBC/BMP: 12/05/17 0805 12/06/17 0915 Significant Findings Laboratory Tests Test 12/05/17 08:05 12/06/17 09:15 Neutrophils (%) (Auto) 71.5 % (16.0-70.0) Blood Urea Nitrogen 25 MG/DL (7-18) Creatinine 1.36 MG/DL (0.60-1.30) 1.32 MG/DL (0.60-1.30) Total Bilirubin 0.1 MG/DL (0.2-1.0) Chloride Level 108 MEQ/L (98-107) 108 MEQ/L (98-107) Estimat Glomerular Filtration Rate 74 ML/MIN (>89) 76 ML/MIN (>89) Phenytoin (Dilantin) Level 2.1 MCG/ML (10.0-20.0) Calcium Level 8.2 MG/DL (8.5-10.1) Imaging Reported Meds & Active Scripts Active Dilantin (Phenytoin Extended) 100 Mg Cap 200 Mg PO BID 30 Days PE at Discharge GENERAL: Patient is very somnolent and unable to hold a conversation currently. CARDIOVASCULAR: Regular rate and rhythm without murmurs, gallops, or rubs. RESPIRATORY: Clear to auscultation. Breath sounds equal bilaterally. No wheezes , rales, or rhonchi. GASTROINTESTINAL: Abdomen soft, non-tender, nondistended. MUSCULOSKELETAL: Extremities without clubbing, cyanosis, or edema. NEUROLOGICAL: Limited. Patient very somnolent and unable to participate. He just received Ativan. Pt update on day of discharge Patient feels better he is eating no nausea no vomiting no diarrhea or constipation. Denies chest pain or shortness of breath. No seizures overnight. Refusing MRI. Awaiting for EEG results Hospital Course 32-year-old male with history of seizures admitted with breakthrough seizure. Suspect secondary to noncompliance. However he had 3 seizures within the past 24 hours. Patient will be admitted for observation with neurology consultation. -Patient loaded with Dilantin in the ED. Continue home dose Dilantin - Seizure precautions - Consult neurology. CT scan revealed no acute findings. Neurology also recommends MRI of the brain however the patient is declining. Also do EEG is normal. Per neurology patient can be discharged on Dilantin 200 mg p.o. twice daily - Supportive care with IV fluid. - Check urine drug screen and alcohol level. Discussed Condition With patient nurse patient is refusing MRI. EEG done and pending results. If normal ok to DC. However patinet left AMA Patient had no more seizures. He feels comfortable to go home to follow up with PCP and consultants as outpatient LEFT AMA Pt Condition on Discharge: Stable Discharge Disposition: Discharge Home Discharge Time: > 30 minutes Discharge Instructions DIET: Follow Instructions for: As Tolerated, No Restrictions Activities you can perform: Regular-No Restrictions Activities to Avoid: Driving Follow up Referrals: Neurology - 3-5 Days PCP Follow-up - 2-3 Days Continued Medications: Phenytoin Extended (Dilantin) 100 Mg Cap 200 MG PO BID for Control Seizures for 30 Days, #120 CAP 1 Refill Gavi Ruffin MD Dec 06, 2017 13:31
[2017-12-06 15:16] VITALS: BP 132/80; PULSE 72; RESP 18; TEMP 98; O2SAT 99
--- NOTE | 2017-12-06 16:05 | HHI.PR ---
Review/Management Daily Summary refusing mri wants to go home eeg pending no further seizures Subjective Subjective Comments seen early in am Active Medications Current Medications Medications (Trade) Dose Ordered Sig/Brayden Route Start Time Stop Time Status Last Admin (NS Flush) 2 ml UNSCH PRN IV FLUSH 12/05/17 10:15 (NS Flush) 2 ml BID IV FLUSH 12/05/17 21:00 12/06/17 07:53 (Dilantin) 200 mg BID PO 12/05/17 21:00 12/06/17 07:53 Potassium Chloride/Dextrose/ Sod Cl 1,000 ml @ 100 mls/hr Q10H IV 12/05/17 17:30 12/06/17 07:53 Allergies Allergies Coded Allergies No Known Allergies (Verified Allergy, Unknown, 12/05/17) Exam I&O / VS 12/06/17 12/06/17 12/07/17 14:59 22:59 06:59 Intake Total 2000 ml Output Total 600 ml Balance 2000 ml -600 ml Intake IV Total 2000 ml Output Urine Total 600 ml Vital Signs Date Time Temp Pulse Resp B/P (MAP) Pulse Ox O2 Delivery O2 Flow Rate FiO2 12/06/17 15:16 98.0 72 18 132/80 (97) 99 12/06/17 12:47 98.0 77 20 118/72 (87) 99 12/06/17 08:24 98.6 65 18 113/70 (84) 99 12/06/17 04:07 97.8 61 18 125/70 (88) 97 Objective Micro and Labs Laboratory Tests Test 12/06/17 09:15 Blood Urea Nitrogen 13 Creatinine 1.32 Random Glucose 99 Calcium Level 8.2 Sodium Level 141 Potassium Level 3.6 Chloride Level 108 Carbon Dioxide Level 24.1 Anion Gap 9 Estimat Glomerular Filtration Rate 76 Phenytoin (Dilantin) Level 13.5 Foreign Adams MD Dec 06, 2017 16:05
--- NOTE | 2017-12-06 21:03 | MG ---
cc: Paul Fernandez MD EEG RECORD NUMBER: [id number] INDICATION: A 32-year-old, some confusion, possible seizure. DESCRIPTION: A 7-9 Hz activity, 20-50 microvolts low-amplitude beta in the frontal channels. Good anterior to posterior gradient. Attenuation background slowing. Bursts of delta occurring approximately paroxysmally transition into drowsy and sleep state. Reasonable driving with photic stimulation. A couple tiny phase reversals at T3, epoch 56, slight mild asymmetric left temporal slowing compared to the right. A couple of well formed phase reversals at T3, epoch 66, 67. Anterior to posterior gradient. Good EEG variability and reactivity. Single lead EKG showing sinus rhythm. INTERPRETATION Left frontotemporal isolated sharp waves. No active seizures. Stable awake-sleep electroencephalogram. Clinical correlation. Paul Fernandez MD MG/KD , 08:50 PM , 09:01 PM
== END 2017-12-06 17:55 | disposition left against medical advice (07) ==
LOC: NEPE 06:17 → NEDA 10:01 → NEPFCDU 12:10
PROVIDERS: ADMIT Hospitalist; ATTEND Hospitalist
DX: G40.919 Epilepsy, unspecified, intractable, without status epilepticus (principal); Z86.011 Personal history of benign neoplasm of the brain
CPT/HCPCS: 80048; 80053; 80185; 80307; 85025; 95819; 96361; 96365; 96375; 99285; G0378; J1165; J2060; J3480; J7030

== ENCOUNTER 2018-03-04 20:52 | Emergency (ER) | payer SELFPAY ==
[~2018-03-04] VITALS: Ht 180.3 cm; Wt 90.0 kg
[2018-03-04 21:00] VITALS: BP 111/59; PULSE 97; RESP 17; TEMP 98.1; O2SAT 99
[2018-03-04] MEDS ORDERED: SODIUM CHLOR 0.9% 1000 ML INJ 1,000 ML IV ONE (21:03)
[2018-03-04] MEDS ORDERED: SODIUM CHLORIDE 0.9% FLUSH 10 ML FLUSH IVF PRN (21:15)
--- NOTE | 2018-03-04 21:28 | PD ---
HPI Chief Complaint: Seizure Time Seen by Provider: 21:03 Travel History International Travel<30 days: No Contact w/Intl Traveler<30days: No Traveled to known affect area: No History of Present Illness HPI This 32-year-old man, history of seizures, his seizure about 2 minutes in length while playing basketball. Patient states she has had seizure for several years. Denies any previous traumatic injuries or surgery is on Dilantin and gabapentin. He states he takes these regularly has not had a seizure in years. That being said, he has been seen multiple times for seizures in the past year alone, with subtherapeutic Dilantin levels. Denies any injuries or complaints. He was admitted in November for recurrent seizures. History Past Medical History Narrative Medical Seizures PNEUMOCCOCAL Vaccine (Year): 3 Social History Alcohol Use: Yes (SOCIALLY ) Tobacco Use: No Allergies-Medications (Allergen,Severity, Reaction): Coded Allergies: No Known Allergies (Verified Allergy, Unknown, 12/05/17) Reported Meds & Prescriptions Reported Meds & Active Scripts Active Dilantin (Phenytoin Extended) 100 Mg Cap 200 Mg PO BID 30 Days Reported Gabapentin 100 Mg Cap 100 Mg PO HS Review of Systems Except as stated in HPI: all other systems reviewed are Neg Physical Exam Narrative GENERAL: Well-appearing 32-year-old man, still little bit sluggish becoming or unable to answer questions appropriately. SKIN: Focused skin assessment warm/dry. HEAD: Atraumatic. Normocephalic. EYES: Pupils equal and round. No scleral icterus. No injection or drainage. ENT: No nasal bleeding or discharge. Mucous membranes pink and moist. NECK: Trachea midline. No JVD. CARDIOVASCULAR: Regular rate and rhythm. No murmur appreciated. RESPIRATORY: No accessory muscle use. Clear to auscultation. Breath sounds equal bilaterally. GASTROINTESTINAL: Abdomen soft, non-tender, nondistended. Hepatic and splenic margins not palpable. MUSCULOSKELETAL: No obvious deformities. No clubbing. No cyanosis. No edema. NEUROLOGICAL: Awake and alert. No obvious cranial nerve deficits. Motor grossly within normal limits. Normal speech. PSYCHIATRIC: Appropriate mood and affect; insight and judgment normal. Data Data Last Documented VS Vital Signs Date Time Temp Pulse Resp B/P (MAP) Pulse Ox O2 Delivery O2 Flow Rate FiO2 03/04/18 21:00 98.1 97 17 111/59 (76) 99 Orders Orders Complete Blood Count With Diff (03/04/18 21:03) Basic Metabolic Panel (Bmp) (03/04/18 21:03) Phenytoin (Dilantin) (03/04/18 21:03) Blood Glucose (03/04/18 21:03) Ecg Monitoring (03/04/18 21:03) Iv Access Insert/Monitor (03/04/18 21:03) Oximetry (03/04/18 21:03) Sodium Chlor 0.9% 1000 Ml Inj (Ns 1000 M (03/04/18 21:03) Sodium Chloride 0.9% Flush (Ns Flush) (03/04/18 21:15) Fosphenytoin Inj (Cerebyx Inj) (03/04/18 22:30) Labs Laboratory Tests Test 03/04/18 21:30 White Blood Count 9.8 TH/MM3 Red Blood Count 5.08 MIL/MM3 Hemoglobin 16.1 GM/DL Hematocrit 47.4 % Mean Corpuscular Volume 93.2 FL Mean Corpuscular Hemoglobin 31.7 PG Mean Corpuscular Hemoglobin Concent 34.0 % Red Cell Distribution Width 14.1 % Platelet Count 220 TH/MM3 Mean Platelet Volume 8.5 FL Neutrophils (%) (Auto) 74.6 % Lymphocytes (%) (Auto) 19.7 % Monocytes (%) (Auto) 5.2 % Eosinophils (%) (Auto) 0.2 % Basophils (%) (Auto) 0.3 % Neutrophils # (Auto) 7.3 TH/MM3 Lymphocytes # (Auto) 1.9 TH/MM3 Monocytes # (Auto) 0.5 TH/MM3 Eosinophils # (Auto) 0.0 TH/MM3 Basophils # (Auto) 0.0 TH/MM3 CBC Comment DIFF FINAL Differential Comment Blood Urea Nitrogen 21 MG/DL Creatinine 2.17 MG/DL Random Glucose 93 MG/DL Calcium Level 9.6 MG/DL Sodium Level 139 MEQ/L Potassium Level 4.2 MEQ/L Chloride Level 103 MEQ/L Carbon Dioxide Level 19.9 MEQ/L Anion Gap 16 MEQ/L Estimat Glomerular Filtration Rate 43 ML/MIN Phenytoin (Dilantin) Level 3.0 MCG/ML MDM Medical Decision Making Medical Screen Exam Complete: Yes Emergency Medical Condition: Yes Interpretation(s) LABS: CBC is unremarkable. BMP is remarkable for mild anion gap acidosis mildly elevated creatinine. Dilantin 3.0 Differential Diagnosis Seizure, noncompliance, head injury, electrolyte abnormality, other Narrative Course Medical decision making 32-year-old man, history of seizures, current seizures in the emergency department related. States he is taking his medicines regularly. Denies any somatic complaints at this time. Resolving postictal state. Will check labs, fluids, likely discharge. Karli continues to be subtherapeutic. Patient states he is taking his medication normally. To fairly low dose. He says he thinks it will because he was playing basketball. Discussed these had multiple presentations for low Dilantin. Recommend increasing his oral medications. Patient does not want to do this at this time. Recommend he follow-up with his primary physician to consider this. We will give a dose of IV Dilantin here, outpatient follow-up. Diagnosis Primary Impression: Seizure Additional Impression: Subtherapeutic serum dilantin level Additional Instructions: Follow-up with your primary physician in the next week to discuss whether it be prudent to adjust your medications. Do not drive or operate heavy machinery until cleared by neurology. You should avoid being in any situation where if you had a seizure it could be dangerous such as swimming, looking on a ladder, or other such activities. Return to the emergency department for any seizures lasting more than 5 minutes , [id number] seizures, or seizures with prolonged confusion afterwards. Continue current medications. Med/Other Pt SpecificInfo: No Change to Meds Disposition: 01 DISCHARGE HOME Condition: Stable Benjy Sainz MD Mar 04, 2018 21:28
[2018-03-04 22:02] LABS: AUTOMATED NEUTROPHIL # 7.3 TH/MM3 (1.8-7.7); BASOPHIL % 0.3 % (0.0-2.0); EOSINOPHIL % 0.2 % (0.0-4.0); HEMATOCRIT 47.4 % (39.0-51.0); HEMOGLOBIN 16.1 GM/DL (13.0-17.0); LYMPH % 19.7 % (9.0-44.0); LYMPHOCYTE # 1.9 TH/MM3 (1.0-4.8); MEAN CELL VOLUME 93.2 FL (80.0-100.0); MEAN CORPUSCULAR HEMOGLOBIN 31.7 PG (27.0-34.0); MEAN PLATELET VOLUME 8.5 FL (7.0-11.0); MONO % 5.2 % (0.0-8.0); MONOCYTE # 0.5 TH/MM3 (0-0.9); NEUT % 74.6 % (16.0-70.0); PLATELET COUNT 220 TH/MM3 (150-450); RED BLOOD COUNT 5.08 MIL/MM3 (4.50-5.90); RED CELL DISTRIBUTION WIDTH 14.1 % (11.6-17.2); WHITE BLOOD COUNT 9.8 TH/MM3 (4.0-11.0)
[2018-03-04] MEDS ORDERED: GABA100C4 PO (22:10)
[2018-03-04 22:12] LABS: BICARBONATE 19.9 MEQ/L (21.0-32.0); CALCIUM 9.6 MG/DL (8.5-10.1); CREATININE 2.17 MG/DL (0.60-1.30)
[2018-03-04] MEDS ORDERED: FOSPHENYTOIN INJ 1,000 MGPE in SODIUM CHLORIDE 0.9% INJ 50 ML IV ONE (22:30)
== END 2018-03-04 23:08 | disposition home or self-care (01) ==
LOC: NEPC 20:52
DX: G40.909 Epilepsy, unspecified, not intractable, without status epilepticus (principal)
CPT/HCPCS: 80048; 80185; 85025; 96374; 99284; J7030; Q2009